=== PATIENT | female | born 1975 | race Caucasian/White ===

== ENCOUNTER 2017-07-01 15:19 | Emergency (ER) | payer OTHER, MEDICAID, SELFPAY ==
[2017-07-01 15:46] VITALS: BP 136/115; PULSE 74; RESP 18; TEMP 36.9; O2SAT 97; BMI 33.5
[2017-07-01 16:48] VITALS: BP 168/115
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
[2017-07-01 17:26] LABS: Microscopic, Urine URINE MICROSCOPIC (MICROSCOPIC)
[2017-07-01 17:30] LABS: Appearance,Urine CLEAR (Clear); Bilirubin,Urine Negative (Negative); Blood, Urine Negative (Negative); Color,Urine YELLOW (Yellow); Glucose,Urine (UA) Negative (Negative); Ketones,Urine Negative (Negative); Leukocyte Esterase,Urine Negative (Negative); Nitrate,Urine Negative (Negative); Protein,Urine Negative (Negative); Specific Gravity, Urine <= 1.005 (1.005-1.030); Urobilinogen,Urine 0.2 EU/dl (0.2)
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
--- NOTE | 2017-07-01 17:33 | PC.NURSE ---
Randolph Wolff RN to CT to put in IV for iv contradst.
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
[2017-07-01 17:47] LABS: Bacteria,Urine Trace /lpf; WBC,Urine Occasional #/hpf (0-3)
[2017-07-01 17:54] LABS: Basophils % 0.4 % (0.1-2.0); Eosinophils # 0.2 K/mm3 (0.0-0.4); Eosinophils % 3.2 % (0.1-12.0); Hematocrit 44.1 % (37.0-47.0); Hemoglobin 14.2 g/dL (12.2-16.2); Lymphocytes # 1.6 K/mm3 (0.7-4.5); Lymphocytes % 30.3 K/mm3 (10-50); Mean Corpuscular HGB Conc 32.2 g/dL (31.8-35.4); Mean Corpuscular Hemoglobin 29.5 pg (27.0-31.2); Mean Corpuscular Volume 91.7 fl (81-99); Mean Platelet Volume 8.1 fl (7.4-10.4); Monocytes # 0.2 K/mm3 (0.1-1.0); Monocytes % 3.3 % (1.7-9.3); Neutrophils # 3.2 K/mm3 (1.8-7.8); Neutrophils % 62.7 % (37.0-80.0); Platelet Count 200 K/mm3 (142-424); Red Blood Count 4.81 M/mm3 (4.20-5.40); Red Cell Distribution Width 13.9 % (11.5-17.5); White Blood Count 5.2 K/mm3 (4.8-10.8)
[2017-07-01 18:12] LABS: Alanine Aminotransferase 29 U/L (12-78); Albumin Level 3.6 gm/dL (3.4-5.0); Alkaline Phosphatase 59 U/L (46-116); Anion Gap 9.7 mEq/L (5-15); Aspartate Amino Transferase 12 U/L (15-37); Bilirubin,Total 0.3 mg/dL (0.2-1.0); Blood Urea Nitrogen 10 mg/dL (7-18); Calcium 8.7 mg/dL (8.5-10.1); Carbon Dioxide 28 mmol/L (21.0-32.0); Chloride 107 mmol/L (98-107); Creatinine Clearance Estimated 139 mL/min (0-300); Creatinine,Serum 0.73 mg/dL (0.55-1.02); Estimated Glomerular Filt Rate 88 ml/min (>60); GFR (African American) 107 ML/MIN (>60); Globulin 3.7 gm/dl (1.3-3.2); Glucose 91 mg/dL (74-106); Potassium 3.7 mmoL/L (3.5-5.1); Sodium 141 mmol/L (136-145); Total Protein,Serum 7.3 gm/dL (6.4-8.2)
[2017-07-01 20:06] VITALS: BP 152/80; PULSE 79; RESP 20; TEMP 36.6; O2SAT 99
== END 2017-07-01 20:07 | disposition home or self-care (01) ==
PROVIDERS: Emergency Provider Family Medicine; Family Provider Physician Assistant; PCP Nurse Practitioner Family
DX: S00.33XA Contusion of nose, initial encounter (principal); S10.93XA Contusion of unspecified part of neck, initial encounter; S30.1XXA Contusion of abdominal wall, initial encounter; S20.212A Contusion of left front wall of thorax, initial encounter; S20.211A Contusion of right front wall of thorax, initial encounter; V49.9XXA Car occupant (driver) (passenger) injured in unspecified traffic accident, initial encounter; Y92.488 Other paved roadways as the place of occurrence of the external cause; F17.210 Nicotine dependence, cigarettes, uncomplicated; F41.9 Anxiety disorder, unspecified; Z88.6 Allergy status to analgesic agent; Z88.1 Allergy status to other antibiotic agents
CPT/HCPCS: 70160; 71046; 71101; 72125; 73562; 74177; 80053; 81001; 85025; 96374; 96375; 99283; Q9967

== ENCOUNTER 2017-07-08 15:01 | Emergency (ER) | payer MEDICAID, SELFPAY ==
[2017-07-08 15:03] VITALS: BP 116/72; PULSE 86; RESP 77; TEMP 36.9; O2SAT 99; BMI 32.9
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
[2017-07-08 16:28] VITALS: BP 90/40; PULSE 75; RESP 18; TEMP 36.7; O2SAT 99
== END 2017-07-08 16:28 | disposition home or self-care (01) ==
PROVIDERS: Emergency Provider Emergency Medicine; Family Provider Physician Assistant; PCP Emergency Medicine
DX: S20.211A Contusion of right front wall of thorax, initial encounter (principal); T07.XXXA Unspecified multiple injuries, initial encounter; F41.9 Anxiety disorder, unspecified; Z88.6 Allergy status to analgesic agent; Z88.1 Allergy status to other antibiotic agents
CPT/HCPCS: 99281

== ENCOUNTER 2022-11-04 13:46 | Emergency (ER) | payer MEDICAID, SELFPAY ==
[2022-11-04 13:47] VITALS: BP 118/79; PULSE 73; RESP 18; TEMP 36.7; O2SAT 94; BMI 27.6
--- NOTE | 2022-11-04 14:07 | EXP.UTC ---
Discharge Plan Disposition Patient Disposition: Home, Self-Care Condition: Good Prescriptions Prescriptions: New sulfamethoxazole-trimethoprim [Bactrim DS] 800-160 mg Tablet 1 tab PO BID Qty: 20 0RF cephalexin 500 mg capsule 500 mg PO QID Qty: 40 0RF mupirocin 2 % ointment 1 applic topical TID 7 Days Qty: 15 0RF No Action hydroxyzine HCl 25 mg tablet 25 mg PO BID PRN (Reason: Anxiety) paroxetine HCl [Paxil] 40 mg tablet 40 mg PO DAILY hydrocodone-acetaminophen [[place]] 10-325 mg tablet 1 tab PO Q4-6H PRN (Reason: pain) gabapentin 300 mg tablet extended release 24 hr 300 mg PO TID fluticasone propionate [Flonase Allergy Relief] 50 mcg/actuation spray,suspension 1 spray INTRANASAL DAILY montelukast [Singulair] 10 mg tablet 10 mg PO QHS Referrals Follow up/Referrals: Owen Cristina MD [Primary Care Provider] - See instructions Activity Restrictions/Add. Instructions Additional Instructions/Restrictions: Keep the affected area clean and dry. Follow up with your regular doctor. Take the antibiotics as directed and apply the topical antibiotics as directed. Apply warm wet compresses to the affected area three or four times per day. GO TO THE ER FOR ANY WORSENING SYMPTOMS Clinical Impressions Clinical Impression: Cellulitis of right foot Instructions Patient Instructions: Cellulitis Discharge ED Provider: Joshua Cordoba [facility] General Stated complaint: Possible insect bite RT foot Mode of Arrival: Ambulatory Source of Information: Patient Limitations: No Limitations Time Seen by Provider: 11/04/22 14:07 Description of Symptoms (Recalled from Triage Doc. by RN): Patient reports a bug bite on the top of her right foot for 1 week. HEENT Symptoms (Recalled from RN notes): No Resp Symptoms (Recalled from RN notes): No Skin Symptoms (Recalled from RN notes): Yes MS Symptoms (Recalled from RN notes): No Functional Status (Recalled from RN notes): wnl History of Present Illness Provider Complaint: She states that for the past 3 days she has had swelling and warmth of her right foot. There is an area of redness on top of the foot. She denies any known injury. She is not a diabetic. Related Data Home Medications Medication Instructions Recorded Confirmed fluticasone propionate 50 1 spray intranasal DAILY Breathing 07/01/17 07/01/17 mcg/actuation nasal problems spray,suspension (Flonase Allergy Relief) gabapentin 300 mg tablet,extended 300 mg PO TID Pain 07/01/17 07/01/17 release 24 hr hydrocodone 10 mg-acetaminophen 1 tab PO Q4-6H PRN pain 07/01/17 07/01/17 325 mg tablet ([place]) hydroxyzine HCl 25 mg tablet 25 mg PO BID PRN Anxiety 07/01/17 07/01/17 montelukast 10 mg tablet 10 mg PO QHS allergies 07/01/17 07/01/17 (Singulair) paroxetine HCl 40 mg tablet (Paxil) 40 mg PO DAILY Depression 07/01/17 07/01/17 Previous Rx's Medication Instructions Recorded cephalexin 500 mg capsule 500 mg PO QID #40 caps 11/04/22 mupirocin 2 % topical ointment 1 applic topical TID 7 days #15 11/04/22 grams sulfamethoxazole 800 1 tab PO BID #20 tabs 11/04/22 mg-trimethoprim 160 mg tablet (Bactrim DS) Allergies Allergy/AdvReac Type Severity Reaction Status Date / Time ketorolac [From TORADOL] Allergy Intermediate I-RASH Verified 07/01/17 16:25 NSAIDS (Non-Steroidal Allergy Intermediate I-HIVES Verified 07/01/17 16:25 Anti-Inflamma [NSAIDS (NON-STEROIDAL ANTI-INFLAMMA] tramadol [TRAMADOL] Allergy Intermediate I-ITCHING Verified 07/01/17 16:25 morphine Allergy Mild Hives Verified 07/01/17 16:25 amoxicillin [AMOXICILLIN] Allergy Unknown Verified 07/01/17 16:25 From RED DYE (FOOD/DRUG) Allergy Intermediate I-ITCHING Uncoded 07/01/17 13:53 Worker's Comp Is this a Worker's Comp case?: No [facility] Disclaimer: The information contained in this section may have been updated after the patient was seen, as this inform
[2022-11-04 14:48] VITALS: BP 118/79; PULSE 73; RESP 18; TEMP 36.7; O2SAT 94
== END 2022-11-04 14:49 | disposition home or self-care (01) ==
PROVIDERS: Emergency Provider Nurse Practitioner Family; PCP Emergency Medicine
DX: L03.115 Cellulitis of right lower limb (principal); F17.210 Nicotine dependence, cigarettes, uncomplicated
CPT/HCPCS: 96372; 99204; 99212; G0463; J0696

== ENCOUNTER 2023-10-26 21:40 | Emergency (ER) | payer MEDICAID, SELFPAY ==
[2023-10-26 21:51] VITALS: BP 126/66; PULSE 83; RESP 16; TEMP 37.4; O2SAT 100; BMI 28.8
[2023-10-26] MEDS: diphenhydrAMINE 50MG/ML VIAL 25 MG IV (22:17)
[2023-10-26] MEDS: KETOROLAC 30MG/ML VIAL 15 MG IV (22:17)
[2023-10-26] MEDS: ACETAMINOPHEN 1,000MG/100ML VIAL 1000 MG IV (22:17)
[2023-10-26] MEDS: LACTATED RINGERS 1000ML 1,000 ML 999 ML IV (22:17)
[2023-10-26 22:22] LABS: Barbiturates Screen,Urine Negative ng/ml (<200)
[2023-10-26 22:23] LABS: Benzodiazepines Screen,Urine Negative ng/ml (<200); Cannabinoid Screen,Urine Positive ng/ml (<50)
[2023-10-26 22:24] LABS: Cocaine Screen,Urine Positive ng/ml (<300)
[2023-10-26 22:25] LABS: Methadone Screen,Urine Negative ng/ml (<300); Opiate Screen,Urine Negative ng/ml (<300)
[2023-10-26 22:26] LABS: Phencyclidine Screen,Urine Negative ng/ml (<25)
[2023-10-26 22:29] LABS: Basophils % 0.2 % (0.1-2.0); Eosinophils # 0.1 K/mm3 (0.0-0.4); Eosinophils % 0.9 % (0.1-12.0); Hematocrit 37.1 % (37.0-47.0); Hemoglobin 12.4 g/dL (12.2-16.2); Lymphocytes # 1.1 K/mm3 (0.7-4.5); Lymphocytes % 12.7 % (10-50); Mean Corpuscular HGB Conc 33.4 g/dL (31.8-35.4); Mean Corpuscular Volume 83.8 fl (81-99); Mean Platelet Volume 8.3 fl (7.4-10.4); Monocytes # 0.3 K/mm3 (0.1-1.0); Monocytes % 3.7 % (1.7-9.3); Neutrophils # 6.9 K/mm3 (1.8-7.8); Neutrophils % 82.6 % (37.0-80.0); Platelet Count 188 K/mm3 (142-424); Red Blood Count 4.43 M/mm3 (4.20-5.40); Red Cell Distribution Width 14.6 % (11.5-17.5); White Blood Count 8.3 K/mm3 (4.8-10.8)
[2023-10-26 22:37] LABS: Chloride 105 mmol/L (98-107); Sodium 138 mmol/L (136-145)
[2023-10-26 22:40] LABS: Alanine Aminotransferase 23 U/L (12-78); Albumin/Globulin Ratio 1.1 (1.1-1.8); Alkaline Phosphatase 71 U/L (38-126); Aspartate Amino Transferase 25 U/L (14-36); Bilirubin,Total 0.6 mg/dl (0.2-1.3); Blood Urea Nitrogen 11 mg/dl (7-17); Calcium 9.4 mg/dl (8.4-10.2); Carbon Dioxide 24 mmol/L (22.0-30.0); Creatinine Clearance Estimated 116 mL/min (50-200); Estimated Glomerular Filt Rate 90 ml/min (>60); GFR (African American) 109 ML/MIN (>60); Globulin 3.7 g/dL (1.3-3.2); Glucose 139 mg/dl (74-100); Total Protein,Serum 7.7 g/dl (6.3-8.2)
[2023-10-26 22:41] LABS: Lactic Acid 2.4 mmol/L (0.7-2.1)
--- NOTE | 2023-10-26 23:18 | HMH.EDGENADL ---
Discharge Plan Disposition Patient Disposition: Home, Self-Care Condition: Good Prescriptions Prescriptions: New levofloxacin 750 mg tablet 750 mg PO DAILY 7 Days Qty: 7 0RF bacitracin [Bacitraycin Plus] 500 unit/gram ointment 1 applic topical BID Qty: 28 0RF No Action hydroxyzine HCl 25 mg tablet 25 mg PO BID PRN (Reason: Anxiety) paroxetine HCl [Paxil] 40 mg tablet 40 mg PO DAILY hydrocodone-acetaminophen [[place]] 10-325 mg tablet 1 tab PO Q4-6H PRN (Reason: pain) gabapentin 300 mg tablet extended release 24 hr 300 mg PO TID fluticasone propionate [Flonase Allergy Relief] 50 mcg/actuation spray,suspension 1 spray INTRANASAL DAILY montelukast [Singulair] 10 mg tablet 10 mg PO QHS sulfamethoxazole-trimethoprim [Bactrim DS] 800-160 mg Tablet 1 tab PO BID Qty: 20 0RF cephalexin 500 mg capsule 500 mg PO QID Qty: 40 0RF mupirocin 2 % ointment 1 applic topical TID 7 Days Qty: 15 0RF Referrals Follow up/Referrals: Lilia Cheema APRN [Primary Care Provider] - See instructions Activity Restrictions/Add. Instructions Additional Instructions/Restrictions: You were evaluated in the ER. You are appropriate for discharge at this time. Keep the wound clean and dry. Remove the dressing twice daily and wash the wound with soap and water. Apply the prescribed bacitracin to the wound after you have slightly moved the yellow loop as instructed. Then cover and wrap the wound. Cut the yellow loop and remove it yourself after 5 days. This should be removed on Tuesday the . You can also come back to the ER to have the loop removed if needed. Continue using bacitracin ointment over the wound until it is fully healed. Take the antibiotics as prescribed, do not skip doses, do not stop taking them early. Make an appointment with your primary care physician for reevaluation in 2 to 3 days, return to the ER with new, worsening, or otherwise concerning symptoms. Clinical Impressions Clinical Impression: Abscess of right forearm, Cellulitis of forearm, right, Acute hypokalemia Instructions Patient Instructions: DI for Skin Abscess Discharge ED Provider: Rudy Guzman General Adult HPI <Rudy Guzman MD - Last Filed: 10/26/23 23:32> General Chief complaint: Skin/Abscess/Foreign Body Stated complaint: inf swollem knot LT forearm, fever Time Seen by Provider: 10/26/23 21:46 Mode of Arrival: Family Vehicle Source of Information: Patient Limitations: No Limitations Description of Symptoms (Recalled from ER Triage Doc. by RN): 48 yo female presents with CC of right arm abscess. Patient explains that she originally had what she thought was a bug bite, that she kept scratching and also accidentally hit with her car door on tuesday, and now has exponentially grown in size. Patient is a former drug addict per her statment, last known use was 4 months ago per her statement. Patient is alert, slightly febrile at presentation. History of Present Illness HPI narrative: Please note that above description of symptoms, in this electronic medical record under categorization of recalled from ER triage doctor by RN are reflective of an initial nursing assessment, however, is not reflective of my full history and physical exam that was personally taken and clarified. Consequentially, this preceding description of symptoms, which may include the patient's categorized chief complaint in the EMR, do not reflect my personal clinical impression, and the ultimate description of history of present illness and patient stated complaints should be deferred to this section of the note. Unless stated otherwise or congruent with this section of the note, additional signs, symptoms, or incongruence should be interpreted as inaccurate with my clinical impression. Related Data Home Medications Medication Instructions Recorded Confirmed fluticasone propionate 50 1 spray intranasal DAILY Breathing 07/01/17 07/01/17 mcg/actuation nasal problems spray,suspension (Flonase Allergy Relief) gabapentin 300 mg tablet,extended 300 mg PO TID Pain 07/01/17 07/01/17 release 24 hr hydrocodone 10 mg-acetaminophen 1 tab PO Q4-6H PRN pain 07/01/17 07/01/17 325 mg tablet ([place]) hydroxyzine HCl 25 mg tablet 25 mg PO BID PRN Anxiety 07/01/17 07/01/17 montelukast 10 mg tablet 10 mg PO QHS allergies 07/01/17 07/01/17 (Singulair) paroxetine HCl 40 mg tablet (Paxil) 40 mg PO DAILY Depression 07/01/17 07/01/17 Previous Rx's Medication Instructions Recorded cephalexin 500 mg capsule 500 mg PO QID #40 caps 11/04/22 mupirocin 2 % topical ointment 1 applic topical TID 7 days #15 11/04/22 grams sulfamethoxazole 800 1 tab PO BID #20 tabs 11/04/22 mg-trimethoprim 160 mg tablet (Bactrim DS) bacitracin 500 unit/gram topical 1 applic topical BID #28 grams 10/27/23 ointment (Bacitraycin Plus) levofloxacin 750 mg tablet 750 mg PO DAILY 7 days #7 tabs 10/27/23 Allergies Allergy/AdvReac Type Severity Reaction Status Date / Time ketorolac [From TORADOL] Allergy Intermediate I-RASH Verified 07/01/17 16:25 NSAIDS (Non-Steroidal Allergy Intermediate I-HIVES Verified 07/01/17 16:25 Anti-Inflamma [NSAIDS (NON-STEROIDAL ANTI-INFLAMMA] tramadol [TRAMADOL] Allergy Intermediate I-ITCHING Verified 07/01/17 16:25 morphine Allergy Mild Hives Verified 07/01/17 16:25 amoxicillin [AMOXICILLIN] Allergy Unknown Verified 07/01/17 16:25 From RED DYE (FOOD/DRUG) Allergy Intermediate I-ITCHING Uncoded 07/01/17 13:53 PFSH <Rudy Guzman MD - Last Filed: 10/26/23 23:32> PFS Disclaimer: The information contained in this section may have been updated after the patient was seen, as this information can be updated by other users. Social History (Updated 11/04/22 @ 20:05 by Joshua Cordoba APRN) Smoking Status: Unknown if ever smoked alcohol intake: never substance use type: denies use current occupational status: employed Travel in the last 8 weeks: None <Rudy Guzman MD - Last Filed: 10/26/23 23:32> ROS Obtained: Yes All systems reviewed & no additional complaints except as documented Physical Exam <Rudy Guzman MD - Last Filed: 10/26/23 23:32> General General appearance: alert Head Head exam: atraumatic and normocephalic Eye Eye exam: Present normal appearance, PERRL and EOMI Neck Neck exam: Present normal inspection, full ROM and trachea midline Respiratory Respiratory exam: Absent respiratory distress, wheezes, stridor, accessory muscle use or prolonged expiratory phase Cardiovascular Cardiovascular exam: Present other (Pulses equal symmetric in upper and lower extremities) Abdominal Exam Abdominal exam: Present soft; Absent distention, tenderness or pulsatile mass Extremities Exam Extremities exam: Present edema and other (Swelling, tenderness, obvious fluctuance and abscess of mid right forearm. Compartments are soft, no pain with passive range of motion or active range of motion of wrist, but maximal pain with direct pressure) Neurological Exam Neurological exam: Present alert, oriented X3 and CN II-XII intact; Absent motor sensory deficit Skin Skin exam: Present warm and dry; Absent diaphoresis or erythema Medical Decision Making <Rudy Guzman MD - Last Filed: 10/26/23 23:32> Medical Records Medical records reviewed: Yes I reviewed the patient's medical records. Robert Inquiry Pt receiving controlled substance: No Robert was queried for this patient: No Vital Signs: 10/26/23 21:51 Temperature 99.3 F Temperature Source Oral Pulse Rate [Right Brachial] 83 Respiratory Rate 16 Blood Pressure [Right Arm] 126/66 Blood Pressure Mean [Right Arm] 86 Blood Pressure Source [Right Arm] Automatic Cuff Blood Pressure Position [Right Arm] Sitting 02 Sat by Pulse Oximetry 100 Oxygen Delivery Method Room Air Lab Data Lab Results 10/26/23 21:59: Urine Opiates Screen Negative, Urine Methadone Screen Negative, Ur Barbituates Screen Negative, Ur Phencyclidine Scrn Negative, Ur Amphetamines Screen Quality Improvement Consultant, U Benzodiazepines Scrn Negative, Urine Cocaine Screen Positive H, U Marijuana (THC) Screen Positive H 10/26/23 22:15: WBC 8.3, RBC 4.43, Hgb 12.4, Hct 37.1, MCV 83.8, MCH 28.0, MCHC 33.4, RDW 14.6, Plt Count 188, MPV 8.3, Neut % (Auto) 82.6 H, Lymph % (Auto) 12.7, [place] % (Auto) 3.7, Eos % (Auto) 0.9, Baso % (Auto) 0.2, Neut # (Auto) 6.9, Lymph # (Auto) 1.1, [place] # (Auto) 0.3, Eos # (Auto) 0.1, Baso # (Auto) 0.0, Sodium 138, Potassium 3.0 L, Chloride 105, Carbon Dioxide 24, Anion Gap 12.0, BUN 11, Creatinine 0.70, Estimated Creat Clear 116, Estimated GFR 90, Est GFR ( Amer) 109, Glucose 139 H, Lactate 2.4 H, Calcium 9.4, Total Bilirubin 0.6, AST 25, ALT 23, Alkaline Phosphatase 71, Total Creatine Kinase 21 L, C-Reactive Protein 43.0 H, Total Protein 7.7, Albumin 4.0, Globulin 3.7 H, Albumin/Globulin Ratio 1.1 10/26/23 22:15 10/26/23 22:15 Orders (Tests/Meds): ED MEDICATIONS Generic Name Dose Route Start Last Admin Trade Name Freq PRN Reason Stop Dose Admin Sodium Chloride 10 ml 10/27/23 00:44 10/27/23 00:45 Sodium Chloride 0.9% 10ml Syr (Rad Only) IV 11/26/23 00:43 10 ml NEEDED PRN Administration Maintain IV Site Discontinued Medications Generic Name Dose Route Start Last Admin Trade Name Freq PRN Reason Stop Dose Admin Acetaminophen 1,000 mg 10/26/23 21:56 10/26/23 22:17 Acetaminophen 1,000mg/100ml Vial IV 10/26/23 21:57 1,000 mg ONCE ONE Administration Bacitracin 1 each 10/27/23 03:06 10/27/23 03:13 Bacitracin Oint 0.9gm Udp TP 10/27/23 03:07 1 each ONCE ONE Administration Cocaine HCl 1 ml 10/27/23 02:04 10/27/23 02:23 Cocaine 4% Topical Soln 4ml Bottle TP 10/27/23 02:05 1 ml ONCE ONE Administration Diphenhydramine HCl 25 mg 10/26/23 21:56 10/26/23 22:17 Diphenhydramine 50mg/Ml Vial IV 10/26/23 21:57 25 mg ONCE ONE Administration Epinephrine HCl 1 mg 10/27/23 02:04 10/27/23 02:22 Epinephrine 1 Mg/Ml Ampul TP 10/27/23 02:05 1 mg ONCE ONE Administration Hydromorphone HCl 1 mg 10/26/23 23:24 10/26/23 23:37 Hydromorphone 2mg/Ml Syringe IV 10/26/23 23:25 1 mg ONCE ONE Administration Hydromorphone HCl 1 mg 10/27/23 02:04 10/27/23 02:22 Hydromorphone 2mg/Ml Syringe IV 10/27/23 02:05 1 mg ONCE ONE Administration Lactated Ringer's 1,000 mls @ 999 mls/hr 10/26/23 21:56 10/26/23 22:17 Lactated Ringer's 1000 Ml Bag IV 10/26/23 22:56 999 mls/hr .Q1H1M ONE Administration Dalbavancin 1,500 mg/ Dextrose 250 mls @ 500 mls/hr 10/26/23 23:04 10/26/23 23:30 IV 10/26/23 23:05 500 mls/hr ONCE ONE Administration Iopamidol 75 ml 10/27/23 00:44 10/27/23 00:45 Iopamidol-370 (76%);100ml Bottle IV 10/27/23 00:45 75 ml ONCE ONE Administration Ketorolac Tromethamine 15 mg 10/26/23 21:56 10/26/23 22:17 Ketorolac 30mg/Ml Vial IV 10/26/23 21:57 15 mg ONCE ONE Administration Levofloxacin 750 mg 10/27/23 03:03 10/27/23 03:13 Levofloxacin 750 Mg Tablet PO 10/27/23 03:04 750 mg ONCE ONE Administration Lidocaine HCl 1 ml 10/27/23 02:04 10/27/23 02:22 Lidocaine 4% Topical Soln 1ml TP 10/27/23 02:05 1 ml ONCE ONE Administration Lidocaine HCl 5 ml 10/27/23 02:04 10/27/23 02:22 Lidocaine 1% 5ml Pf Vial IJ 10/27/23 02:05 5 ml ONCE ONE Administration Potassium Chloride 60 meq 10/26/23 22:54 10/26/23 23:31 Potassium Chloride 20meq Tab PO 10/26/23 22:55 60 meq ONCE ONE Administration ORDERS Category Date Time Status CT forearm RT w con Stat Cat Scan 10/26/23 23:22 Completed POCUS Point of Care (ER Only) Stat Exams 10/26/23 23:04 Taken POCUS Point of Care (ER Only) Stat Exams 10/27/23 01:56 Ordered CBC w/Auto Diff [Complete Blood Count Auto Diff] Stat Lab 10/26/23 22:15 Completed CK [Creatine Kinase] Stat Lab 10/26/23 22:15 Completed CMP [Comprehensive Metabolic Panel] Stat Lab 10/26/23 22:15 Completed CRP [C-Reactive Protein] Stat Lab 10/26/23 22:15 Completed Lactic Acid Follow Up (RFLX 1) Stat Lab 10/27/23 02:23 Ordered Lactic Acid Stat Lab 10/26/23 22:15 Completed UDS [Drug Screen,Urine] Stat Lab 10/26/23 21:59 Completed Blood Culture Stat Micro 10/26/23 21:56 Received Medical Decision Narrative: 48-year-old female history of polysubstance abuse previous IV drug abuse currently on Suboxone maintenance therapy still using other substances presenting with right upper extremity swelling. Patient has intermittently changing story about how her right upper extremity swelling came to be. States that she had a boil that was there for a few days. Tried to pop it, unable to do so, got larger, red, developed ahead. Today, she was walking out the door, her dog somehow closed the door and closed her right upper extremity into a door while it was swinging close. Thought she broke her arm. Came in for further evaluation. Has taken Tylenol for the pain. History was obtained via conversation with patient and daughter. On arrival, patient hemodynamically stable, alert, oriented x4, appropriate, GCS 15, moving all extremities spontaneously, pupils equal and reactive to light. Full physical exam performed and significant for patient appears to be in mild distress secondary to pain. Pressured speech, difficult to redirect. Right upper extremity is swollen, has obvious fluctuance to the mid forearm. Area of fluctuance probably 6 cm circularly with 1 to 2 cm of fluctuance in the middle. Cellulitis with abscess is most likely on differential, but also myositis, early compartment syndrome, others cannot be ruled out immediately. Patient is neurologically intact distally, no pain with range of motion of wrist or digits. Compartments soft. Pulses are equal and symmetric in upper extremities and patient does have good capillary refill in her right upper extremity.. Differential includes abscess, deep space infection, myositis, necrotizing infection, among others. Independent rotation of workup demonstrates normal white count with neutrophilic predominance, sodium normal. Potassium low at 3.0, this was repleted with 60 p.o. Patient's lactate 2.4. CK pending at time of handoff to oncoming physician. Given large surface area and normal kidney function, Dalvance was ordered given low concern for need for admission or surgical intervention initially. [id number] ultrasound was performed and was much more concerning for deep space infection versus infectious myositis. Large, complex abscess with surrounding cellulitis burrowing deep into the muscular tissue of the arm. CT of the right upper extremity was ordered. Patient was given 1 mg Dilaudid IV. Prior to final disposition, care handed off to oncoming physician. Industrial Property Appraiser disclaimer Much of this encounter note is an electronic resident physician spoken language to printed text. Electronic resident physician of the spoken language may permit errors. Although I have reviewed the note, some errors may still exist. <Kane Montoya MD - Last Filed: 10/27/23 03:24> Vital Signs: 10/26/23 21:51 Temperature 99.3 F Temperature Source Oral Pulse Rate [Right Brachial] 83 Respiratory Rate 16 Blood Pressure [Right Arm] 126/66 Blood Pressure Mean [Right Arm] 86 Blood Pressure Source [Right Arm] Automatic Cuff Blood Pressure Position [Right Arm] Sitting 02 Sat by Pulse Oximetry 100 Oxygen Delivery Method Room Air Lab Data Lab Results 10/26/23 21:59: Urine Opiates Screen Negative, Urine Methadone Screen Negative, Ur Barbituates Screen Negative, Ur Phencyclidine Scrn Negative, Ur Amphetamines Screen Quality Improvement Consultant, U Benzodiazepines Scrn Negative, Urine Cocaine Screen Positive H, U Marijuana (THC) Screen Positive H 10/26/23 22:15: WBC 8.3, RBC 4.43, Hgb 12.4, Hct 37.1, MCV 83.8, MCH 28.0, MCHC 33.4, RDW 14.6, Plt Count 188, MPV 8.3, Neut % (Auto) 82.6 H, Lymph % (Auto) 12.7, [place] % (Auto) 3.7, Eos % (Auto) 0.9, Baso % (Auto) 0.2, Neut # (Auto) 6.9, Lymph # (Auto) 1.1, [place] # (Auto) 0.3, Eos # (Auto) 0.1, Baso # (Auto) 0.0, Sodium 138, Potassium 3.0 L, Chloride 105, Carbon Dioxide 24, Anion Gap 12.0, BUN 11, Creatinine 0.70, Estimated Creat Clear 116, Estimated GFR 90, Est GFR ( Amer) 109, Glucose 139 H, Lactate 2.4 H, Calcium 9.4, Total Bilirubin 0.6, AST 25, ALT 23, Alkaline Phosphatase 71, Total Creatine Kinase 21 L, C-Reactive Protein 43.0 H, Total Protein 7.7, Albumin 4.0, Globulin 3.7 H, Albumin/Globulin Ratio 1.1 Orders (Tests/Meds): ED MEDICATIONS Generic Name Dose Route Start Last Admin Trade Name [place] PRN Reason Stop Dose Admin Sodium Chloride 10 ml 10/27/23 00:44 10/27/23 00:45 Sodium Chloride 0.9% 10ml Syr (Rad Only) IV 11/26/23 00:43 10 ml NEEDED PRN Administration Maintain IV Site Discontinued Medications Generic Name Dose Route Start Last Admin Trade Name [place] PRN Reason Stop Dose Admin Acetaminophen 1,000 mg 10/26/23 21:56 10/26/23 22:17 Acetaminophen 1,000mg/100ml Vial IV 10/26/23 21:57 1,000 mg ONCE ONE Administration Bacitracin 1 each 10/27/23 03:06 10/27/23 03:13 Bacitracin Oint 0.9gm Udp TP 10/27/23 03:07 1 each ONCE ONE Administration Cocaine HCl 1 ml 10/27/23 02:04 10/27/23 02:23 Cocaine 4% Topical Soln 4ml Bottle TP 10/27/23 02:05 1 ml ONCE ONE Administration Diphenhydramine HCl 25 mg 10/26/23 21:56 10/26/23 22:17 Diphenhydramine 50mg/Ml Vial IV 10/26/23 21:57 25 mg ONCE ONE Administration Epinephrine HCl 1 mg 10/27/23 02:04 10/27/23 02:22 Epinephrine 1 Mg/Ml Ampul TP 10/27/23 02:05 1 mg ONCE ONE Administration Hydromorphone HCl 1 mg 10/26/23 23:24 10/26/23 23:37 Hydromorphone 2mg/Ml Syringe IV 10/26/23 23:25 1 mg ONCE ONE Administration Hydromorphone HCl 1 mg 10/27/23 02:04 10/27/23 02:22 Hydromorphone 2mg/Ml Syringe IV 10/27/23 02:05 1 mg ONCE ONE Administration Lactated Ringer's 1,000 mls @ 999 mls/hr 10/26/23 21:56 10/26/23 22:17 Lactated Ringer's 1000 Ml Bag IV 10/26/23 22:56 999 mls/hr .Q1H1M ONE Administration Dalbavancin 1,500 mg/ Dextrose 250 mls @ 500 mls/hr 10/26/23 23:04 10/26/23 23:30 IV 10/26/23 23:05 500 mls/hr ONCE ONE Administration Iopamidol 75 ml 10/27/23 00:44 10/27/23 00:45 Iopamidol-370 (76%);100ml Bottle IV 10/27/23 00:45 75 ml ONCE ONE Administration Ketorolac Tromethamine 15 mg 10/26/23 21:56 10/26/23 22:17 Ketorolac 30mg/Ml Vial IV 10/26/23 21:57 15 mg ONCE ONE Administration Levofloxacin 750 mg 10/27/23 03:03 10/27/23 03:13 Levofloxacin 750 Mg Tablet PO 10/27/23 03:04 750 mg ONCE ONE Administration Lidocaine HCl 1 ml 10/27/23 02:04 10/27/23 02:22 Lidocaine 4% Topical Soln 1ml TP 10/27/23 02:05 1 ml ONCE ONE Administration Lidocaine HCl 5 ml 10/27/23 02:04 10/27/23 02:22 Lidocaine 1% 5ml Pf Vial IJ 10/27/23 02:05 5 ml ONCE ONE Administration Potassium Chloride 60 meq 10/26/23 22:54 10/26/23 23:31 Potassium Chloride 20meq Tab PO 10/26/23 22:55 60 meq ONCE ONE Administration ORDERS Category Date Time Status CT forearm RT w con Stat Cat Scan 10/26/23 23:22 Completed POCUS Point of Care (ER Only) Stat Exams 10/26/23 23:04 Taken POCUS Point of Care (ER Only) Stat Exams 10/27/23 01:56 Ordered CBC w/Auto Diff [Complete Blood Count Auto Diff] Stat Lab 10/26/23 22:15 Completed CK [Creatine Kinase] Stat Lab 10/26/23 22:15 Completed CMP [Comprehensive Metabolic Panel] Stat Lab 10/26/23 22:15 Completed CRP [C-Reactive Protein] Stat Lab 10/26/23 22:15 Completed Lactic Acid Follow Up (RFLX 1) Stat Lab 10/27/23 02:23 Ordered Lactic Acid Stat Lab 10/26/23 22:15 Completed UDS [Drug Screen,Urine] Stat Lab 10/26/23 21:59 Completed Blood Culture Stat Micro 10/26/23 21:56 Received Medical Decision Narrative: 48-year-old female history of polysubstance abuse previous IV drug abuse currently on Suboxone maintenance therapy still using other substances presenting with right upper extremity swelling. Patient has intermittently changing story about how her right upper extremity swelling came to be. States that she had a boil that was there for a few days. Tried to pop it, unable to do so, got larger, red, developed ahead. Today, she was walking out the door, her dog somehow closed the door and closed her right upper extremity into a door while it was swinging close. Thought she broke her arm. Came in for further evaluation. Has taken Tylenol for the pain. History was obtained via conversation with patient and daughter. On arrival, patient hemodynamically stable, alert, oriented x4, appropriate, GCS 15, moving all extremities spontaneously, pupils equal and reactive to light. Full physical exam performed and significant for patient appears to be in mild distress secondary to pain. Pressured speech, difficult to redirect. Right upper extremity is swollen, has obvious fluctuance to the mid forearm. Area of fluctuance probably 6 cm circularly with 1 to 2 cm of fluctuance in the middle. Cellulitis with abscess is most likely on differential, but also myositis, early compartment syndrome, others cannot be ruled out immediately. Patient is neurologically intact distally, no pain with range of motion of wrist or digits. Compartments soft. Pulses are equal and symmetric in upper extremities and patient does have good capillary refill in her right upper extremity.. Differential includes abscess, deep space infection, myositis, necrotizing infection, among others. Independent rotation of workup demonstrates normal white count with neutrophilic predominance, sodium normal. Potassium low at 3.0, this was repleted with 60 p.o. Patient's lactate 2.4. CK pending at time of handoff to oncoming physician. Given large surface area and normal kidney function, Dalvance was ordered given low concern for need for admission or surgical intervention initially. [id number] ultrasound was performed and was much more concerning for deep space infection versus infectious myositis. Large, complex abscess with surrounding cellulitis burrowing deep into the muscular tissue of the arm. CT of the right upper extremity was ordered. Patient was given 1 mg Dilaudid IV. Prior to final disposition, care handed off to oncoming physician. Industrial Property Appraiser disclaimer Much of this encounter note is an electronic resident physician spoken language to printed text. Electronic resident physician of the spoken language may permit errors. Although I have reviewed the note, some errors may still exist. Montoya: Upon my assumption of care patient is stable and her pain is improved since receiving Dilaudid. Previous physician was concerned for large complex abscess with possible muscular invasion. CT imaging of the right upper extremity was performed to further evaluate this. The CT imaging was personally interpreted and I do not appreciate obvious muscular invasion. The radiology read is notable for large multiloculated abscess of the forearm as previously described. They also commented on inflammatory changes of the basilic vein. I discussed the radiology read specifically with Dr. Alvarado with radiology from [facility] that he stated specifically there is no muscle belly invasion however the abscess does abut the muscle and remains in the subcutaneous space. I performed a limited DVT ultrasound of the right upper extremity specifically to examine the basilic vein and do not appreciate any findings consistent with thrombophlebitis on this exam. LEC was applied to the area where incision and drainage is necessary. Patient was consented for incision and drainage. See procedure note. Given concerns for IV drug use given patient's positive UDS and history, I believe she requires gram-negative coverage in addition to the Dalvance that she received. I prescribed Levaquin for this purpose. Patient has also been prescribed bacitracin for wound care. She was given explicit instructions on continued wound care, management of the [place], medication administration instructions, follow-up instructions, and strict return precautions for the ER. She indicated understanding and the patient was discharged in stable condition. Procedures <Rudy Guzman MD - Last Filed: 10/26/23 23:32> Limited Ultrasound Indication:: Limited soft tissue ultrasound Indication: Concern for cellulitis and abscess right upper extremity Identified structures: Location: Right forearm Findings: Lower complex abscess right upper extremity with surrounding cellulitis. No evidence of subcutaneous gas Impression: Complex abscess and cellulitis right upper extremity with extension into the muscle. Images were saved to permanent archive The study was technically adequate Soft Tissue CPT Codes: CPT Neck: 05241-65 CPT Upper extremity: 41946-54 CPT Axilla: 39700-40 CPT Chest wall: 80400-94 CPT Breast: 86256-81-LP/LT (complete), 78760-96-TS/LT (limited), CPT Upper Back: 67328-02 CPT Lower Back: 66761-57 CPT Abdominal Wall: 97821-47 CPT Pelvic Wall: 82493-65 CPT Lower Extremity: 63960-49 CPT Other Soft Tissue: 94696-27 This study was performed by ky, and I personally interpreted all images/videos. Based on my clinical judgement, these images were adequate and did not necessitate further imaging. <Kane Montoya MD - Last Filed: 10/27/23 03:24> Abscess I/D Site: upper extremity Side (if applicable): right Sedation/analgesia: none Local Anesthetic: lidocaine 1% and other anesthetic (Topical LEC) Amount of anesthesia used (mL): 2 Technique: incised with #11 blade (2 parallel linear incisions approximately 1.5 cm apart) Irrigation: Yes (50 mL sterile saline) Packing used?: none (Vessel loop through the 2 parallel incisions to maintain patency) Complications: other (No complications, neurovascularly intact after procedure with improvement of pain, patient tolerated procedure well, copious amounts of foul-smelling purulent material expressed from the abscess, it was also probed and deloculated) Miscellaneous Procedure Procedure Performed: Limited DVT ultrasound Indication: Limited compression ultrasonography of the right upper extremity was performed to evaluate for non-compressibility of the deep veins in the patient. The ultrasound was performed with the following indications, as noted in the note: Arm pain, CT findings concerning for possible superficial thrombophlebitis of basilic vein Identified structures: Right basilic Findings: Upper extremity: Good compressibility of basilic vein. No findings consistent with thrombophlebitis. Impression: Unremarkable limited right upper extremity DVT ultrasound Images were saved to permanent archive The study was technically adequate CPT: 18600-61-YL This study was performed by ky, and I personally interpreted all images/videos. Based on my clinical judgement, these images were adequate and did not necessitate further imaging. Critical Care <Rudy Guzman MD - Last Filed: 10/26/23 23:32> Critical Care Time Critical Care Time: No
--- NOTE | 2023-10-26 23:22 | CT_ITS ---
PROCEDURE INFORMATION: Exam: CT Right Upper Extremity With Contrast, Forearm Exam date and time: 10/27/2023 12:39 AM Age: 48 years old Clinical indication: Mass or lump; Arm, lower; Right; Additional info: Abscess R forearm TECHNIQUE: Imaging protocol: Computed tomography of the right upper extremity with contrast. Exam focused on the forearm. Radiation optimization: All CT scans at this facility use at least one of these dose optimization techniques: automated exposure control; mA and/or kV adjustment per patient size (includes targeted exams where dose is matched to clinical indication); or iterative reconstruction. Contrast material: ISOVUE; Contrast volume: 75 ml; Contrast route: IV; COMPARISON: No relevant prior studies available. FINDINGS: Bones/joints: Normal. No acute fracture or dislocation. Soft tissues: Additional areas of inflammation are seen within more distal arm. Vasculature: There is a 2.9 x 2.7 x 2.7 cm multiloculated rim enhancing collection immediately distal to the antecubital fossa (image 72 series 4). There is significant inflammatory change of the basilic vein (image 41 series 4). IMPRESSION: 1. 3 cm abscess within the volar aspect of the forearm. 2. Possible thrombophlebitis of the basilic vein.
[2023-10-26] MEDS: DALBAVANCIN HCL 1,500 MG in DEXTROSE 5 % IN WATER 250 ML 500 MG IV (23:30)
[2023-10-26] MEDS: POTASSIUM CHLORIDE 20MEQ TAB 60 MEQ PO (23:31)
[2023-10-26] MEDS: HYDROMORPHONE 2MG/ML SYRINGE 1 MG IV (23:37)
[2023-10-26 23:38] LABS: Creatine Kinase 21 U/L (30-135)
[2023-10-27] MEDS: SODIUM CHLORIDE 0.9% 10ML SYR (RAD ONLY) 10 ML IV (00:45)
[2023-10-27] MEDS: IOPAMIDOL-370 (76%);100ML BOTTLE 75 ML IV (00:45)
[2023-10-27 00:46] VITALS: BP 99/63; PULSE 55; O2SAT 98
--- NOTE | 2023-10-27 02:12 | PC.NURSE ---
Topical Lidocaine placed
[2023-10-27] MEDS: HYDROMORPHONE 2MG/ML SYRINGE 1 MG IV (02:22)
[2023-10-27] MEDS: EPINEPHrine 1 MG/ML AMPUL TP (02:22)
[2023-10-27] MEDS: LIDOCAINE 1% 5ML PF VIAL 5 ML IJ (02:22)
[2023-10-27] MEDS: LIDOCAINE 4% TOPICAL SOLN 1ML 1 ML TP (02:22)
[2023-10-27 02:23] LABS: Reflex Lactic Add Lactic Reflex
[2023-10-27] MEDS: COCAINE 4% TOPICAL SOLN 4ML BOTTLE 1 ML TP (02:23)
--- NOTE | 2023-10-27 02:45 | PC.NURSE ---
Dr. Montoya at bedside for I&D
[2023-10-27 02:58] VITALS: BP 123/82; PULSE 55; O2SAT 98
[2023-10-27] MEDS: levoFLOXacin 750 MG TABLET PO (03:13)
[2023-10-27] MEDS: BACITRACIN OINT 0.9GM UDP 1 EACH TP (03:13)
[2023-10-27 03:23] VITALS: BP 126/84; PULSE 59; O2SAT 100
[2023-10-27 03:26] VITALS: BP 126/84; PULSE 56; RESP 18; TEMP 36.7; O2SAT 100
--- NOTE | 2023-10-30 13:07 | PC.NURSE ---
Notified of blood culture being positive for moderate gram negative rods. Charge nurse notified.
--- NOTE | 2023-10-30 13:39 | PC.NURSE ---
Dr. Griffin reviewed both of pt's Preliminary blood cultures. Asked for staff to call pt to check on her. I called pt, she is feeling better and her arm is improving. Denies any fevers or appetite issues. I let her know we will call her back again with the final culture results and pt stated her understanding.
[2023-11-01 10:24] LABS: Amphetamine Positive (.); Amphetamine (GC/MS) 1878 ng/mL (Cutoff=500); Amphetamines Positive (.); Methamphetamine Positive (.); Methamphetamine (GC/MS) >3000 ng/mL (Cutoff=500)
--- NOTE | 2023-11-03 10:16 | PC.NURSE ---
BLOOD CULTURE DISCUSSED WITH DR MADRID, NO NEW ORDERS PT ON APPROPRIATE ABX
== END 2023-10-27 03:28 | disposition home or self-care (01) ==
PROVIDERS: Emergency Provider Emergency Medicine; PCP Nurse Practitioner
DX: L02.413 Cutaneous abscess of right upper limb (principal); L03.113 Cellulitis of right upper limb; B96.89 Other specified bacterial agents as the cause of diseases classified elsewhere; E87.6 Hypokalemia; R74.02 Elevation of levels of lactic acid dehydrogenase [LDH]; F15.129 Other stimulant abuse with intoxication, unspecified; F14.129 Cocaine abuse with intoxication, unspecified
CPT/HCPCS: 10061; 73201; 80053; 80307; 80324; 82550; 83605; 85025; 86140; 87040; 87077; 87186; 96361; 96374; 96375; 96376; 99285; G0480; J0131; J0875; J1170; J1885; J7060; J7120; Q9967

== ENCOUNTER 2024-07-07 22:24 | Emergency (ER) | payer MEDICAID, SELFPAY ==
[2024-07-07 22:33] VITALS: BP 147/120; PULSE 75; RESP 20; TEMP 36.9; O2SAT 95; BMI 34.3
[2024-07-07] MEDS: LIDOCAINE/PRILOCAINE 5GM TUBE 5 GM TP (23:00)
[2024-07-07] MEDS: ONDANSETRON 4MG ODT 4 MG SL (23:01)
[2024-07-07] MEDS: HYDROMORPHONE 2MG/ML SYRINGE 2 MG IM (23:02)
--- NOTE | 2024-07-07 23:20 | ED_ITS ---
Discharge Plan Disposition Patient Disposition: Home, Self-Care Condition: Good Prescriptions Prescriptions: New sulfamethoxazole-trimethoprim [Bactrim DS] 800-160 mg tablet 1 tab PO BID 14 Days Qty: 28 0RF No Action hydroxyzine HCl 25 mg tablet 25 mg PO BID PRN (Reason: Anxiety) paroxetine HCl [Paxil] 40 mg tablet 40 mg PO DAILY hydrocodone-acetaminophen [[place]] 10-325 mg tablet 1 tab PO Q4-6H PRN (Reason: pain) gabapentin 300 mg tablet extended release 24 hr 300 mg PO TID fluticasone propionate [Flonase Allergy Relief] 50 mcg/actuation spray,suspension 1 spray INTRANASAL DAILY montelukast [Singulair] 10 mg tablet 10 mg PO QHS levofloxacin 750 mg tablet 750 mg PO DAILY 7 Days Qty: 7 0RF bacitracin [Bacitraycin Plus] 500 unit/gram ointment 1 applic topical BID Qty: 28 0RF sulfamethoxazole-trimethoprim [Bactrim DS] 800-160 mg Tablet 1 tab PO BID Qty: 20 0RF cephalexin 500 mg capsule 500 mg PO QID Qty: 40 0RF mupirocin 2 % ointment 1 applic topical TID 7 Days Qty: 15 0RF Referrals Follow up/Referrals: Lilia Cheema APRN [Primary Care Provider] - See instructions Activity Restrictions/Add. Instructions Additional Instructions/Restrictions: You were evaluated in the emergency department today. Expect that your wounds will continue to drain. Keep them covered with a clean dressing. Do not some urgent wounds under any water until they are healed. Follow-up with your primary care provider over the next week for reassessment of your wounds. sterile supervisor your prescription for antibiotic and take the full course as prescribed. Return to the emergency department right away for new or worsening symptoms. Clinical Impressions Clinical Impression: Cellulitis and abscess of upper extremity Instructions Patient Instructions: DI for Cellulitis -- Adult, DI for Incision and Drainage of a Skin Abscess, DI for Skin Abscess Print Language Print Language: [place] Discharge ED Provider: Anisa Kessler General Adult HPI General Chief complaint: Skin/Abscess/Foreign Body Stated complaint: poss abcess on RT arm Time Seen by Provider: 07/07/24 22:43 Mode of Arrival: Ambulatory Source of Information: Patient Description of Symptoms (Recalled from ER Triage Doc. by RN): abcess under right arm History of Present Illness HPI narrative: This patient is a 48-year-old female with remote history of IV drug use states that she has been clean for 2-1/2 years now on Sublocade shots presenting to the emergency department for evaluation with concern for redness, pain, swelling of her right upper arm. She notes that she has trash and debris in her arm from shooting up dirty drugs in the past. She states that periodically, these areas will become inflamed and she will develop wounds as what ever is embedded in her skin will try to work its way out. She has had to have abscesses drained in the past. She denies any fevers or other systemic symptoms. She only complains of pain, redness, swelling to the right upper arm. Related Data Home Medications ?Medication ?Instructions ?Recorded ?Confirmed fluticasone propionate 50 1 spray intranasal DAILY Breathing 07/01/17 07/01/17 mcg/actuation nasal problems spray,suspension (Flonase Allergy Relief) gabapentin 300 mg tablet,extended 300 mg PO TID Pain 07/01/17 07/01/17 release 24 hr hydrocodone 10 mg-acetaminophen 1 tab PO Q4-6H PRN pain 07/01/17 07/01/17 325 mg tablet ([place]) hydroxyzine HCl 25 mg tablet 25 mg PO BID PRN Anxiety 07/01/17 07/01/17 montelukast 10 mg tablet 10 mg PO QHS allergies 07/01/17 07/01/17 (Singulair) paroxetine HCl 40 mg tablet (Paxil) 40 mg PO DAILY Depression 07/01/17 07/01/17 Previous Rx's ?Medication ?Instructions ?Recorded cephalexin 500 mg capsule 500 mg PO QID #40 caps 11/04/22 mupirocin 2 % topical ointment 1 applic topical TID 7 days #15 11/04/22 grams sulfamethoxazole 800 1 tab PO BID #20 tabs 11/04/22 mg-trimethoprim 160 mg tablet (Bactrim DS) bacitracin 500 unit/gram topical 1 applic topical BID #28 grams 10/27/23 ointment (Bacitraycin Plus) levofloxacin 750 mg tablet 750 mg PO DAILY 7 days #7 tabs 10/27/23 sulfamethoxazole 800 1 tab PO BID 14 days #28 tabs 03/22/25 mg-trimethoprim 160 mg tablet (Bactrim DS) Allergies Allergy/AdvReac Type Severity Reaction Status Date / Time ketorolac (From TORADOL) Allergy Intermediate I-RASH Verified 07/01/17 16:25 NSAIDS (Non-Steroidal Allergy Intermediate I-HIVES Verified 07/01/17 16:25 Anti-Inflamma (NSAIDS (NON-STEROIDAL ANTI-INFLAMMA) tramadol (TRAMADOL) Allergy Intermediate I-ITCHING Verified 07/01/17 16:25 morphine Allergy Mild Hives Verified 07/01/17 16:25 amoxicillin (AMOXICILLIN) Allergy Unknown Verified 07/01/17 16:25 From RED DYE (FOOD/DRUG) Allergy Intermediate I-ITCHING Uncoded 07/01/17 13:53 [facility] Disclaimer: The information contained in this section may have been updated after the patient was seen, as this information can be updated by other users. Social History Smoking Status: Current every day smoker tobacco type: cigarettes packs per day: 1 alcohol intake: never substance use type: denies use current occupational status: employed Travel in the last 8 weeks: None Have you lived/traveled outside [place] in past 30 days?: No Contact w/someone who lives/traveled outside US past 30 days?: No Exposure to someone with infectious disease in past 14 days?: No Do you have a fever (greater than 100.4 F or 38 C)?: No Have you tested positive for COVID-19: No Exposed to someone with COVID-19 in past 14 days?: No Do you have a sore throat?: No Do you have a cough?: No Do you have any weakness?: No Do you have any diarrhea?: No Are you experiencing any unusual bleeding?: No Do you have any muscle aches/pain?: No Do you have any abdominal pain?: No Are you experiencing loss of taste or smell?: No Other Medical History Have you received the Flu Vaccine for this season: No Have you received the Pneumonia Vaccine: No ROS Obtained: Yes All systems reviewed & no additional complaints except as documented Physical Exam General General appearance: alert and in no apparent distress Head Head exam: atraumatic and normocephalic Eye Eye exam: Present normal appearance, PERRL and EOMI ENT ENT exam: Present normal exam, normal oropharynx, mucous membranes moist and normal external ear exam Neck Neck exam: Present normal inspection, full ROM and trachea midline; Absent tenderness Chest Chest inspection: Present normal inspection and symmetric chest wall rise; Absent tenderness Respiratory Respiratory exam: Present normal lung sounds bilaterally; Absent respiratory distress, wheezes, stridor or accessory muscle use Cardiovascular Cardiovascular exam: Present regular rate and normal rhythm Abdominal Exam Abdominal exam: Present soft; Absent distention, tenderness or guarding Extremities Exam Extremities exam: Present full ROM, tenderness, normal capillary refill, edema and other (Redness, warmth, swelling to the right upper arm with palpable area of induration. She also has an open wound to the right upper arm that is draining serosanguineous fluid. No significant red streaking away. Neurovascularly intact distally.) Expanded Upper Extremity Exam Right: L/R Arms Top View: 2 1. Small open wound 2. Localized area of erythema, tenderness, central induration Back Exam Back exam: Present normal inspection and full ROM; Absent tenderness Neurological Exam Neurological exam: Present alert, oriented X3, CN II-XII intact and normal gait; Absent motor sensory deficit Psychiatric Psychiatric exam: Present normal affect and normal mood Skin Skin exam: Present warm and dry Medical Decision Making Medical Records Medical records reviewed: Yes I reviewed the patient's medical records. Screening: Per USPSTF and CDC recommendations, given the prevalence of disease in our region, it is our hospital?s policy to screen for HIV and viral Hepatitis for all patients aged 18 and over and those with ongoing risk factors. Robert Inquiry Pt receiving controlled substance: No Vital Signs: 07/07/24 22:33 07/08/24 00:04 Temperature 98.4 F 98.1 F Temperature Source Oral Pulse Rate 86 Pulse Rate [Left Brachial] 75 Respiratory Rate 20 20 Blood Pressure 133/86 Blood Pressure [Left Arm] 147/120 H Blood Pressure Mean [Left Arm] 129 Blood Pressure Source [Left Arm] Automatic Cuff Blood Pressure Position [Left Arm] Sitting 02 Sat by Pulse Oximetry 95 Oxygen Delivery Method Room Air Room Air Lab Data Lab results reviewed: Yes I reviewed the patient's lab results. Orders (Tests/Meds): ED MEDICATIONS Discontinued Medications Generic Name Dose Route Start Last Admin Trade Name Freq PRN Reason Stop Dose Admin Hydromorphone HCl 2 mg 07/07/24 22:58 07/07/24 23:02 Hydromorphone 2mg/Ml Syringe IM 07/07/24 22:59 2 mg ONCE ONE Administration Lidocaine/Epinephrine 20 ml 07/07/24 22:58 07/08/24 00:02 Lidocaine 1% W/Epi 1:100,000 20ml Vial IJ 07/07/24 22:59 4 ml ONCE ONE Administration Lidocaine/Prilocaine 5 gm 07/07/24 22:58 07/07/24 23:00 Lidocaine/Prilocaine 5gm Tube TP 07/07/24 22:59 5 gm ONCE ONE Administration Ondansetron HCl 4 mg 07/07/24 22:58 07/07/24 23:01 Ondansetron 4mg Odt SL 07/07/24 22:59 4 mg ONCE ONE Administration Trimethoprim/Sulfamethoxazole 1 each 07/07/24 23:54 07/08/24 00:00 Sulfa/Trimethoprim 1 Tablet PO 07/07/24 23:55 1 each ONCE ONE Administration ORDERS Category Date Time Status POCUS Point of Care (ER Only) Stat Exams 07/07/24 22:49 Completed HIV Combo Routine Lab 07/07/24 22:35 Ordered Hepatitis C Ab Qual. W/ RFX Routine Lab 07/07/24 22:35 Ordered Wound Culture and Gram Stain Stat Micro 07/07/24 23:31 Received Medical Decision Narrative: In summary, this patient is a 48-year-old female presenting to the Emergency Department for evaluation of right upper arm redness, pain, swelling with concern that she is developed another abscess that needs to be drained. She has a remote history of IV drug use but reports she has been clean for 2-1/2 years.. Differential diagnoses considered include but are not limited to abscess, cellulitis, foreign body. Ruling out the most morbid conditions drove assessment. It should be noted patient's history includes remote history of drug use which is reportedly at goal therapy. This complicates all aspects of care by increasing patient's risk for morbidity. I reviewed patient's past medical records and noted previous evaluation in the ED 10/26/2023 for similar issue at which point patient required incision and drainage of an forearm abscess. On exam, the patient is well-appearing. She has reassuring vital signs apart of telemetry with exception of mild hypertension. I am not concerned for sepsis based on reassuring clinical exam. She has very localized redness, warmth, tenderness, induration to the right upper arm with a small open wound not overlying the area of maximal induration. [id number] ultrasound was performed that confirms two abscesses around 2 cm each of the soft tissues of the right upper arm. After informed consent was obtained after risk versus benefit explanation of incision and drainage, including inability to express fluid, failure procedure, need for repeat procedure, pain, and bleeding, patient agrees to incision and drainage. She requests IM Dilaudid, she states she was given Dilaudid last time for purpose of procedure. She also requests topical numbing cream prior to the injection of numbing medication. Emla was placed over the area, patient was given IM Dilaudid. To prevent nausea, I also administered oral Zofran. Lidocaine with epi was pulled for purpose of procedure. Procedure note: I&D of abscess 1: Area was prepped with Betadine, anesthetized with lidocaine with epinephrine. Negative aspiration for blood at time of injection of lidocaine with good anesthesia achieved. 2cc lidocaine instilled. Single stab incision was made with expression of cloudy/bloody fluid, about 2cc. Culture was sent. Patient tolerated well with no immediate complications. Hemostasis achieved afterward. Remained neurovascularly intact. I&D of abscess 2: Area was prepped with Betadine, and is attached with lidocaine with epinephrine. Negative aspiration for blood at time of injection of lidocaine with good anesthesia achieved. 2cc lidocaine instilled. Single stab incision made, not much material expressed. Ultrasound used for needle aspiration of 2cc of cloudy sanguinous fluid. Patient tolerated well with no immediate complications. Hemostasis achieved afterward. Remained neurovascularly intact. Patient tolerated procedures very well and at this time was deemed to be appropriate for discharge after sterile dressing was applied to wound. I prescribed her Bactrim to treat cellulitis and abscess of the upper extremity. She was given instructions for close follow-up for wound check, instructions for wound care, and strict return precautions. She was discharged after all questions were answered. Procedures Limited Ultrasound Interpretation:: Limited soft tissue ultrasound Indication: Right upper arm soft tissue pain, swelling, and redness Identified structures: Location: Right upper arm Findings: Abscesses x 2, about 2cm each, and cellulitis of the soft tissues of the right upper arm; no appreciable gas, no appreciable foreign body Impression: Abscesses x 2 and cellulitis Images were saved to permanent archive The study was technically adequate Soft Tissue CPT Codes: CPT Neck: 23269-85 CPT Upper extremity: 37001-73 CPT Axilla: 97077-36 CPT Chest wall: 68945-70 CPT Breast: 45165-03-RM/LT (complete), 43684-85-CC/LT (limited), CPT Upper Back: 05556-80 CPT Lower Back: 10674-28 CPT Abdominal Wall: 04611-66 CPT Pelvic Wall: 28179-44 CPT Lower Extremity: 39525-03 CPT Other Soft Tissue: 15223-45 This study was performed by me, and I personally interpreted all images/videos. Based on my clinical judgement, these images were adequate and did not necessitate further imaging. Critical Care Critical Care Time Critical Care Time: No
[2024-07-08] MEDS: SULFA/TRIMETHOPRIM 1 TABLET 1 EACH PO
[2024-07-08] MEDS: LIDOCAINE 1% W/EPI 1:100,000 20ML VIAL 20 ML IJ (00:02)
[2024-07-08 00:04] VITALS: BP 133/86; PULSE 86; RESP 20; TEMP 36.7; O2SAT 99
== END 2024-07-08 00:04 | disposition home or self-care (01) ==
PROVIDERS: Emergency Provider Emergency Medicine; PCP Nurse Practitioner
DX: L02.413 Cutaneous abscess of right upper limb (principal); L03.113 Cellulitis of right upper limb; L53.9 Erythematous condition, unspecified; R22.31 Localized swelling, mass and lump, right upper limb; M79.621 Pain in right upper arm; S41.101A Unspecified open wound of right upper arm, initial encounter; F17.210 Nicotine dependence, cigarettes, uncomplicated; F19.11 Other psychoactive substance abuse, in remission; Z79.899 Other long term (current) drug therapy; Z79.891 Long term (current) use of opiate analgesic; Z88.5 Allergy status to narcotic agent; Z88.8 Allergy status to other drugs, medicaments and biological substances; Z91.02 Food additives allergy status
CPT/HCPCS: 10160; 10060; 10061; 76942; 87070; 87205; 96372; 99284; J1171; Q0162

== ENCOUNTER 2024-07-29 13:56 | Observation (INO) | payer MEDICAID, SELFPAY ==
[2024-07-29] VITALS (12 sets, daily range): BP systolic 94–130; BP diastolic 57–87; PULSE 57–89; RESP 16–18; TEMP 36.3–36.7; O2SAT 96–99; BMI 34.3
--- NOTE | 2024-07-29 14:51 | CT_ITS ---
PROCEDURE INFORMATION: Exam: CT Right Upper Extremity With Contrast, Upper Arm Exam date and time: 07/29/2024 3:33 PM Age: 48 years old Clinical indication: Abnormal findings; Abnormal imaging study of the limbs; Deep abnormality on u/s; Additional info: Right upper arm sts, deep abnormality on u/s TECHNIQUE: Imaging protocol: Computed tomography of the right upper extremity with contrast. Exam focused on the upper arm. Radiation optimization: All CT scans at this facility use at least one of these dose optimization techniques: automated exposure control; mA and/or kV adjustment per patient size (includes targeted exams where dose is matched to clinical indication); or iterative reconstruction. Contrast material: ISOVUE; Contrast volume: 75 ml; Contrast route: IV; COMPARISON: No relevant prior studies available. FINDINGS: Bones/joints: Normal. No acute fracture or dislocation. Soft tissues: Multiple Serpiginous fluid collections in the subcutaneous fat in the lateral upper arm series 9, image 71 -49. They have enhancing fisher and are likely abscesses. Largest measures 3.5 cm. IMPRESSION: Multiple Serpiginous fluid collections in the subcutaneous fat in the lateral upper arm series 9, image 71 -49. They have enhancing fisher and are likely abscesses. Largest measures 3.5 cm.
--- NOTE | 2024-07-29 14:55 | ED_ITS ---
Discharge Plan Disposition Patient Disposition: Admitted Condition: Good Clinical Impressions Clinical Impression: Abscess Discharge ED Provider: Rudy Guzman General Adult HPI <ROSA Mondragon - Last Filed: 07/29/24 16:27> General Chief complaint: Skin/Abscess/Foreign Body Stated complaint: Cyst R arm swelling/pain Time Seen by Provider: 07/29/24 13:58 Mode of Arrival: Ambulatory Source of Information: Patient Description of Symptoms (Recalled from ER Triage Doc. by RN): pt to the ED for a reoccuring abcess on her right upper arm. pt reports she has had multipe I&Ds here in the ED, Her last being on 07/07. pt finished her full course of Bactrim and felt the abcess improved until the last few days. on assessment affected area is red, swollen and warm to the touch. History of Present Illness HPI narrative: Patient presents with right upper arm redness, swelling and induration. She reports that she has had multiple cyst in this region in the past. She had an I&D here last month and completed Bactrim. She reports there was another area that she incised herself without any purulent discharge. She reports she has had sweats and has been feeling hot. She denies any vomiting. MD complaint: right arm pain Onset (ago): week(s) Location: upper extremity Radiation: extremity Consistency: constant Relieving factors: none Exacerbating factors: none Associated symptoms: fever/chills (sweats); negative nausea/vomiting Related Data Home Medications ?Medication ?Instructions ?Recorded ?Confirmed hydroxyzine HCl 25 mg tablet 25 mg PO BID PRN Anxiety 07/01/17 07/29/24 cyclobenzaprine 10 mg tablet 10 mg PO TID PRN Pain 07/29/24 07/29/24 lisinopril 5 mg tablet 5 mg PO BID 07/29/24 07/29/24 magnesium oxide 400 mg PO DAILY 07/29/24 07/29/24 melatonin 10 mg tablet 10 mg PO HS PRN Sleep 07/29/24 07/29/24 pyridoxine (vitamin B6) 25 mg 25 mg PO HS 07/29/24 07/29/24 tablet (Vitamin B-6) trazodone 100 mg tablet 100 mg PO HS 07/29/24 07/29/24 ipratropium 20 mcg-albuterol 100 2 puff inhalation Q6HP PRN 07/30/24 07/30/24 mcg/actuation mist for inhalation Breathing Problems (Combivent Respimat) venlafaxine 150 mg 150 mg PO DAILY 07/30/24 07/30/24 capsule,extended release 24 hr Previous Rx's ?Medication ?Instructions ?Recorded ketorolac 10 mg tablet 10 mg PO Q6H PRN pain #14 tabs 07/31/24 sulfamethoxazole 800 1 tab PO BID #18 tabs 07/31/24 mg-trimethoprim 160 mg tablet (Bactrim DS) Allergies Allergy/AdvReac Type Severity Reaction Status Date / Time diphenhydramine (From AdvReac Palpitation Verified 07/29/24 18:03 Benadryl) s PFSH <ROSA Mondragon - Last Filed: 07/29/24 16:27> [facility] Disclaimer: The information contained in this section may have been updated after the patient was seen, as this information can be updated by other users. Medical History (Updated 08/04/24 @ 00:00 by Awa Solitario) Appendicitis Gallbladder attack COPD (chronic obstructive pulmonary disease) PTSD (post-traumatic stress disorder) Depression Anxiety HTN (hypertension) Surgical History H/O: hysterectomy Family History (Updated 07/29/24 @ 17:37 by Cheryl Ball RN) Other Family history of cancer Social History (Updated 07/29/24 @ 17:37 by Cheryl Ball RN) Smoking Status: Former smoker tobacco type: cigarettes packs per day: 1 alcohol intake: never substance use type: denies use current occupational status: employed Travel in the last 8 weeks: None Other Medical History Have you received the Flu Vaccine for this season: No Have you received the Pneumonia Vaccine: No <ROSA Mondragon - Last Filed: 07/29/24 16:27> ROS Obtained: Yes Systems reviewed as appropriate & no additional complaints except as documented Physical Exam <ROSA Mondragon - Last Filed: 07/29/24 16:27> General General appearance: alert and in no apparent distress Head Head exam: atraumatic and normocephalic Eye Eye exam: Present normal appearance and EOMI Chest Chest inspection: Present symmetric chest wall rise Respiratory Respiratory exam: Present normal lung sounds bilaterally; Absent wheezes or stridor Cardiovascular Cardiovascular exam: Present regular rate and normal rhythm; Absent systolic murmur Extremities Exam Extremities exam: Present full ROM Neurological Exam Neurological exam: Present alert and oriented X3 Psychiatric Psychiatric exam: Present normal affect and normal mood Skin Skin exam: Present other (Right upper arm 2 cm area of erythema with some fluctuance, several inches of induration noted) Medical Decision Making <ROSA Mondragon - Last Filed: 07/29/24 16:27> Medical Records Screening: Per USPSTF and CDC recommendations, given the prevalence of disease in our region, it is our hospital?s policy to screen for HIV and viral Hepatitis for all patients aged 18 and over and those with ongoing risk factors. Vital Signs: 07/29/24 14:03 07/29/24 14:14 07/29/24 14:15 Temperature 98.1 F Temperature Source Oral Pulse Rate 89 82 Pulse Rate [Left Radial] 89 Respiratory Rate 17 Blood Pressure 114/87 125/70 Blood Pressure [Right Arm] 114/87 Blood Pressure Mean Blood Pressure Mean [Right Arm] 96 Blood Pressure Source [Right Arm] Automatic Cuff Blood Pressure Position [Right Arm] Sitting 02 Sat by Pulse Oximetry 98 99 99 Oxygen Delivery Method Room Air Room Air Room Air 07/29/24 15:49 07/29/24 16:00 07/29/24 16:15 Temperature Temperature Source Pulse Rate 82 89 Pulse Rate [Left Radial] Respiratory Rate Blood Pressure 99/64 L 102/57 L 112/67 Blood Pressure [Right Arm] Blood Pressure Mean 74 69 76 Blood Pressure Mean [Right Arm] Blood Pressure Source [Right Arm] Blood Pressure Position [Right Arm] 02 Sat by Pulse Oximetry 97 98 Oxygen Delivery Method Room Air Room Air 07/29/24 16:31 07/29/24 16:45 07/29/24 17:07 Temperature Temperature Source Pulse Rate 89 88 Pulse Rate [Left Radial] Respiratory Rate Blood Pressure 126/67 111/68 Blood Pressure [Right Arm] Blood Pressure Mean 86 76 Blood Pressure Mean [Right Arm] Blood Pressure Source [Right Arm] Blood Pressure Position [Right Arm] 02 Sat by Pulse Oximetry 97 96 Oxygen Delivery Method Room Air Room Air Room Air 07/29/24 17:12 Temperature 97.4 F L Temperature Source Oral Pulse Rate 89 Pulse Rate [Left Radial] Respiratory Rate 18 Blood Pressure 130/84 Blood Pressure [Right Arm] Blood Pressure Mean Blood Pressure Mean [Right Arm] Blood Pressure Source [Right Arm] Blood Pressure Position [Right Arm] 02 Sat by Pulse Oximetry Oxygen Delivery Method Room Air Lab Data Lab Results 07/29/24 15:28: WBC 6.4, RBC 4.19 L, Hgb 12.0 L, Hct 36.2 L, MCV 86.4, MCH 28.6, MCHC 33.1, RDW 12.8, Plt Count 224, MPV 9.2, Neut % (Auto) 50.5, Lymph % (Auto) 34.4, Barton % (Auto) 5.5, Eos % (Auto) 8.8, Baso % (Auto) 0.5, Neut # (Auto) 3.2, Lymph # (Auto) 2.2, Barton # (Auto) 0.4, Eos # (Auto) 0.6 H, Baso # (Auto) 0.0, S odium 135 L, Potassium 4.5, Chloride 102, Carbon Dioxide 26, Anion Gap 11.5, BUN 17, Creatinine 0.90, Estimated Creat Clear 111, Estimated GFR 67, Est GFR ( Amer) 81, Glucose 83, Calcium 9.2 07/31/24 06:18 07/31/24 06:18 Orders (Tests/Meds): ED MEDICATIONS Discontinued Medications Generic Name Dose Route Start Last Admin Trade Name Freq PRN Reason Stop Dose Admin Acetaminophen 650 mg 07/29/24 16:36 Acetaminophen 325mg Tab PO 08/28/24 16:35 Q4HP PRN Fever or Mild Pain (1-3) Hydrocodone Bitart/Acetaminophen 1 tab 07/30/24 16:48 07/31/24 02:29 Hydrocodone/Apap 5/325 Mg Tablet PO 08/29/24 16:47 1 tab Q6HP PRN Administration Moderate Pain (4-6) Hydrocodone Bitart/Acetaminophen 2 tab 07/30/24 16:48 07/30/24 17:47 Hydrocodone/Apap 5/325 Mg Tablet PO 08/29/24 16:47 2 tab Q6HP PRN Administration Severe Pain (7-10) Enoxaparin Sodium 40 mg 07/31/24 09:00 07/31/24 08:10 Enoxaparin 40mg/0.4ml Syringe SUBCUT 08/30/24 08:59 Not Given DAILY USHA Lactated Ringer's 1,000 mls @ 100 mls/hr 07/29/24 21:00 07/31/24 03:00 Lactated Ringer's 1000 Ml Bag IV 08/28/24 20:59 100 mls/hr .Q10H USHA Administration Clindamycin Phosphate 600 mg in 50 mls @ 100 mls/hr 07/29/24 18:30 07/30/24 02:30 Clindamycin 600mg/50ml D5w Premix IV 08/08/24 18:29 100 mls/hr Q8H USHA Administration Cefepime HCl 2 gm/ Sodium 100 mls @ 200 mls/hr 07/29/24 18:30 07/30/24 02:55 Chloride IV 08/08/24 18:29 200 mls/hr Q8H USHA Administration Clindamycin Phosphate 600 mg in 50 mls @ 100 mls/hr 07/30/24 10:30 07/31/24 10:38 Clindamycin 600mg/50ml D5w Premix IV 08/09/24 10:29 100 mls/hr Q8H USHA Administration Cefepime HCl 2 gm/ Sodium 100 mls @ 200 mls/hr 07/30/24 11:00 07/31/24 11:36 Chloride IV 08/09/24 10:59 200 mls/hr Q8H USHA Administration Iopamidol 75 ml 07/29/24 15:35 07/29/24 15:36 Iopamidol-370 (76%);100ml Bottle IV 07/29/24 15:36 75 ml ONCE ONE Administration Ketorolac Tromethamine 30 mg 07/29/24 18:27 07/31/24 10:41 Ketorolac 30mg/Ml Vial IV 08/03/24 18:26 30 mg Q6HP PRN Administration Moderate to Severe Pain (4-10) Melatonin 5 mg 07/29/24 18:45 Melatonin 5mg Tablet PO 08/28/24 18:44 HSP PRN insomnia Ondansetron HCl 4 mg 07/29/24 16:36 Ondansetron 4mg/2ml Vial IV 08/28/24 16:35 Q8HP PRN Nausea Sodium Chloride 10 ml 07/29/24 14:53 Sodium Chloride 0.9% 10ml Flush Syringe IV 08/28/24 14:52 NEEDED PRN Maintain IV Site Sodium Chloride 10 ml 07/29/24 15:35 07/29/24 15:36 Sodium Chloride 0.9% 10ml Syr (Rad Only) IV 07/29/24 15:36 10 ml ONCE ONE Administration Trazodone HCl 50 mg 07/29/24 21:00 07/30/24 21:58 Trazodone 50mg Tablet PO 08/28/24 20:59 50 mg HS USHA Administration ORDERS Category Date Time Status CT humerus RT w con Stat Cat Scan 07/29/24 14:51 Completed General Surgery Consult [Consult to General Surgery] [ Cons 07/29/24 16:39 Ordered CONS] Routine POCUS Point of Care (ER Only) Stat Exams 07/29/24 14:36 Completed BMP [Basic Metabolic Panel] Stat Lab 07/29/24 15:28 Completed CBC w/Auto Diff [Complete Blood Count Auto Diff] Stat Lab 07/29/24 15:28 Completed Complete Blood Count Auto Diff AMLAB Lab 07/30/24 07:54 Completed Complete Blood Count Auto Diff AMLAB Lab 07/31/24 06:18 Completed Comprehensive Metabolic Panel AMLAB Lab 07/30/24 07:54 Completed Comprehensive Metabolic Panel AMLAB Lab 07/31/24 06:18 Completed Lipid Panel AMLAB Lab 07/30/24 07:54 Completed Magnesium AMLAB Lab 07/30/24 07:54 Completed Magnesium AMLAB Lab 07/31/24 06:[address] Data CT Scan: Other (IMPRESSION: Multiple Serpiginous fluid collections in the subcutaneous fat in the lateral upper arm series 9, image 71 -49. They have enhancing fisher and are likely abscesses. Largest measures 3.5 cm. ) Time Received: 16:[address] Reviewed: Yes I have reviewed the patient's CT results Findings Narrative: ED physician informally interpreted the CT results independently US Data ED US Reviewed: Yes I have reviewed the patient's US results Medical Decision Narrative: In summary patient is a 48 year old female who presents the emergency department for evaluation of LUE pain, redness. Patient is hemodynamically stable upon arrival, A-fib. Area concerning for abscess in the left upper arm. Differential diagnosis includes abscess, cellulitis. Initial workup will be conducted with POCUS. Upon repeat evaluation POCUS revealed deeper hypoechoic area with several connected superficial abnormal areas. Will obtain CT of the upper extremity for further evaluation. CT shows abscesses. Largest measures 3.[address] findings discussed with Dr. Bach, patient will be admitted for surgical consultation. <Rudy Guzman MD - Last Filed: 07/29/24 18:36> Robert Inquiry Pt receiving controlled substance: No Vital Signs: 07/29/24 14:03 07/29/24 14:14 07/29/24 14:15 Temperature 98.1 F Temperature Source Oral Pulse Rate 89 82 Pulse Rate [Left Radial] 89 Respiratory Rate 17 Blood Pressure 114/87 125/70 Blood Pressure [Right Arm] 114/87 Blood Pressure Mean Blood Pressure Mean [Right Arm] 96 Blood Pressure Source [Right Arm] Automatic Cuff Blood Pressure Position [Right Arm] Sitting 02 Sat by Pulse Oximetry 98 99 99 Oxygen Delivery Method Room Air Room Air Room Air 07/29/24 15:49 07/29/24 16:00 07/29/24 16:15 Temperature Temperature Source Pulse Rate 82 89 Pulse Rate [Left Radial] Respiratory Rate Blood Pressure 99/64 L 102/57 L 112/67 Blood Pressure [Right Arm] Blood Pressure Mean 74 69 76 Blood Pressure Mean [Right Arm] Blood Pressure Source [Right Arm] Blood Pressure Position [Right Arm] 02 Sat by Pulse Oximetry 97 98 Oxygen Delivery Method Room Air Room Air 07/29/24 16:31 07/29/24 16:45 07/29/24 17:07 Temperature Temperature Source Pulse Rate 89 88 Pulse Rate [Left Radial] Respiratory Rate Blood Pressure 126/67 111/68 Blood Pressure [Right Arm] Blood Pressure Mean 86 76 Blood Pressure Mean [Right Arm] Blood Pressure Source [Right Arm] Blood Pressure Position [Right Arm] 02 Sat by Pulse Oximetry 97 96 Oxygen Delivery Method Room Air Room Air Room Air 07/29/24 17:12 Temperature 97.4 F L Temperature Source Oral Pulse Rate 89 Pulse Rate [Left Radial] Respiratory Rate 18 Blood Pressure 130/84 Blood Pressure [Right Arm] Blood Pressure Mean Blood Pressure Mean [Right Arm] Blood Pressure Source [Right Arm] Blood Pressure Position [Right Arm] 02 Sat by Pulse Oximetry Oxygen Delivery Method Room Air Lab Data Lab Results 07/29/24 15:28: WBC 6.4, RBC 4.19 L, Hgb 12.0 L, Hct 36.2 L, MCV 86.4, MCH 28.6, MCHC 33.1, RDW 12.8, Plt Count 224, MPV 9.2, Neut % (Auto) 50.5, Lymph % (Auto) 34.4, Barton % (Auto) 5.5, Eos % (Auto) 8.8, Baso % (Auto) 0.5, Neut # (Auto) 3.2, Lymph # (Auto) 2.2, Barton # (Auto) 0.4, Eos # (Auto) 0.6 H, Baso # (Auto) 0.0, S odium 135 L, Potassium 4.5, Chloride 102, Carbon Dioxide 26, Anion Gap 11.5, BUN 17, Creatinine 0.90, Estimated Creat Clear 111, Estimated GFR 67, Est GFR ( Amer) 81, Glucose 83, Calcium 9.2 Orders (Tests/Meds): ED MEDICATIONS Discontinued Medications Generic Name Dose Route Start Last Admin Trade Name Freq PRN Reason Stop Dose Admin Acetaminophen 650 mg 07/29/24 16:36 Acetaminophen 325mg Tab PO 08/28/24 16:35 Q4HP PRN Fever or Mild Pain (1-3) Hydrocodone Bitart/Acetaminophen 1 tab 07/30/24 16:48 07/31/24 02:29 Hydrocodone/Apap 5/325 Mg Tablet PO 08/29/24 16:47 1 tab Q6HP PRN Administration Moderate Pain (4-6) Hydrocodone Bitart/Acetaminophen 2 tab 07/30/24 16:48 07/30/24 17:47 Hydrocodone/Apap 5/325 Mg Tablet PO 08/29/24 16:47 2 tab Q6HP PRN Administration Severe Pain (7-10) Enoxaparin Sodium 40 mg 07/31/24 09:00 07/31/24 08:10 Enoxaparin 40mg/0.4ml Syringe SUBCUT 08/30/24 08:59 Not Given DAILY USHA Lactated Ringer's 1,000 mls @ 100 mls/hr 07/29/24 21:00 07/31/24 03:00 Lactated Ringer's 1000 Ml Bag IV 08/28/24 20:59 100 mls/hr .Q10H USHA Administration Clindamycin Phosphate 600 mg in 50 mls @ 100 mls/hr 07/29/24 18:30 07/30/24 02:30 Clindamycin 600mg/50ml D5w Premix IV 08/08/24 18:29 100 mls/hr Q8H USHA Administration Cefepime HCl 2 gm/ Sodium 100 mls @ 200 mls/hr 07/29/24 18:30 07/30/24 02:55 Chloride IV 08/08/24 18:29 200 mls/hr Q8H USHA Administration Clindamycin Phosphate 600 mg in 50 mls @ 100 mls/hr 07/30/24 10:30 07/31/24 10:38 Clindamycin 600mg/50ml D5w Premix IV 08/09/24 10:29 100 mls/hr Q8H USHA Administration Cefepime HCl 2 gm/ Sodium 100 mls @ 200 mls/hr 07/30/24 11:00 07/31/24 11:36 Chloride IV 08/09/24 10:59 200 mls/hr Q8H USHA Administration Iopamidol 75 ml 07/29/24 15:35 07/29/24 15:36 Iopamidol-370 (76%);100ml Bottle IV 07/29/24 15:36 75 ml ONCE ONE Administration Ketorolac Tromethamine 30 mg 07/29/24 18:27 07/31/24 10:41 Ketorolac 30mg/Ml Vial IV 08/03/24 18:26 30 mg Q6HP PRN Administration Moderate to Severe Pain (4-10) Melatonin 5 mg 07/29/24 18:45 Melatonin 5mg Tablet PO 08/28/24 18:44 HSP PRN insomnia Ondansetron HCl 4 mg 07/29/24 16:36 Ondansetron 4mg/2ml Vial IV 08/28/24 16:35 Q8HP PRN Nausea Sodium Chloride 10 ml 07/29/24 14:53 Sodium Chloride 0.9% 10ml Flush Syringe IV 08/28/24 14:52 NEEDED PRN Maintain IV Site Sodium Chloride 10 ml 07/29/24 15:35 07/29/24 15:36 Sodium Chloride 0.9% 10ml Syr (Rad Only) IV 07/29/24 15:36 10 ml ONCE ONE Administration Trazodone HCl 50 mg 07/29/24 21:00 07/30/24 21:58 Trazodone 50mg Tablet PO 08/28/24 20:59 50 mg HS USHA Administration ORDERS Category Date Time Status CT humerus RT w con Stat Cat Scan 07/29/24 14:51 Completed General Surgery Consult [Consult to General Surgery] [ Cons 07/29/24 16:39 Ordered CONS] Routine POCUS Point of Care (ER Only) Stat Exams 07/29/24 14:36 Completed BMP [Basic Metabolic Panel] Stat Lab 07/29/24 15:28 Completed CBC w/Auto Diff [Complete Blood Count Auto Diff] Stat Lab 07/29/24 15:28 Completed Complete Blood Count Auto Diff AMLAB Lab 07/30/24 07:54 Completed Complete Blood Count Auto Diff AMLAB Lab 07/31/24 06:18 Completed Comprehensive Metabolic Panel AMLAB Lab 07/30/24 07:54 Completed Comprehensive Metabolic Panel AMLAB Lab 07/31/24 06:18 Completed Lipid Panel AMLAB Lab 07/30/24 07:54 Completed Magnesium AMLAB Lab 07/30/24 07:54 Completed Magnesium AMLAB Lab 07/31/24 06:18 Completed Medical Decision Narrative: In summary patient is a 48 year old female who presents the emergency department for evaluation of LUE pain, redness. Patient is hemodynamically stable upon arrival, A-fib. Area concerning for abscess in the left upper arm. Differential diagnosis includes abscess, cellulitis. Initial workup will be conducted with POCUS. Upon repeat evaluation POCUS revealed deeper hypoechoic area with several connected superficial abnormal areas. Will obtain CT of the upper extremity for further evaluation. CT shows abscesses. Largest measures 3.[address] findings discussed with Dr. Bach, patient will be admitted for surgical consultation. I was consulted by the GERARD, and we discussed the complexity of the problems being addressed. I approved the treatment and management plan for this patient's care in the Emergency Department, thus performing a substantive portion of the medical decision making. Rudy Guzman MD <Tahir Grijalva MD - Last Filed: 08/08/24 14:57> Vital Signs: 07/29/24 14:03 07/29/24 14:14 07/29/24 14:15 Temperature 98.1 F Temperature Source Oral Pulse Rate 89 82 Pulse Rate [Left Radial] 89 Respiratory Rate 17 Blood Pressure 114/87 125/70 Blood Pressure [Right Arm] 114/87 Blood Pressure Mean Blood Pressure Mean [Right Arm] 96 Blood Pressure Source [Right Arm] Automatic Cuff Blood Pressure Position [Right Arm] Sitting 02 Sat by Pulse Oximetry 98 99 99 Oxygen Delivery Method Room Air Room Air Room Air 07/29/24 15:49 07/29/24 16:00 07/29/24 16:15 Temperature Temperature Source Pulse Rate 82 89 Pulse Rate [Left Radial] Respiratory Rate Blood Pressure 99/64 L 102/57 L 112/67 Blood Pressure [Right Arm] Blood Pressure Mean 74 69 76 Blood Pressure Mean [Right Arm] Blood Pressure Source [Right Arm] Blood Pressure Position [Right Arm] 02 Sat by Pulse Oximetry 97 98 Oxygen Delivery Method Room Air Room Air 07/29/24 16:31 07/29/24 16:45 07/29/24 17:07 Temperature Temperature Source Pulse Rate 89 88 Pulse Rate [Left Radial] Respiratory Rate Blood Pressure 126/67 111/68 Blood Pressure [Right Arm] Blood Pressure Mean 86 76 Blood Pressure Mean [Right Arm] Blood Pressure Source [Right Arm] Blood Pressure Position [Right Arm] 02 Sat by Pulse Oximetry 97 96 Oxygen Delivery Method Room Air Room Air Room Air 07/29/24 17:12 Temperature 97.4 F L Temperature Source Oral Pulse Rate 89 Pulse Rate [Left Radial] Respiratory Rate 18 Blood Pressure 130/84 Blood Pressure [Right Arm] Blood Pressure Mean Blood Pressure Mean [Right Arm] Blood Pressure Source [Right Arm] Blood Pressure Position [Right Arm] 02 Sat by Pulse Oximetry Oxygen Delivery Method Room Air Lab Data Lab Results 07/29/24 15:28: WBC 6.4, RBC 4.19 L, Hgb 12.0 L, Hct 36.2 L, MCV 86.4, MCH 28.6, MCHC 33.1, RDW 12.8, Plt Count 224, MPV 9.2, Neut % (Auto) 50.5, Lymph % (Auto) 34.4, Barton % (Auto) 5.5, Eos % (Auto) 8.8, Baso % (Auto) 0.5, Neut # (Auto) 3.2, Lymph # (Auto) 2.2, Barton # (Auto) 0.4, Eos # (Auto) 0.6 H, Baso # (Auto) 0.0, S odium 135 L, Potassium 4.5, Chloride 102, Carbon Dioxide 26, Anion Gap 11.5, BUN 17, Creatinine 0.90, Estimated Creat Clear 111, Estimated GFR 67, Est GFR ( Amer) 81, Glucose 83, Calcium 9.2 Orders (Tests/Meds): ED MEDICATIONS Discontinued Medications Generic Name Dose Route Start Last Admin Trade Name Freq PRN Reason Stop Dose Admin Acetaminophen 650 mg 07/29/24 16:36 Acetaminophen 325mg Tab PO 08/28/24 16:35 Q4HP PRN Fever or Mild Pain (1-3) Hydrocodone Bitart/Acetaminophen 1 tab 07/30/24 16:48 07/31/24 02:29 Hydrocodone/Apap 5/325 Mg Tablet PO 08/29/24 16:47 1 tab Q6HP PRN Administration Moderate Pain (4-6) Hydrocodone Bitart/Acetaminophen 2 tab 07/30/24 16:48 07/30/24 17:47 Hydrocodone/Apap 5/325 Mg Tablet PO 08/29/24 16:47 2 tab Q6HP PRN Administration Severe Pain (7-10) Enoxaparin Sodium 40 mg 07/31/24 09:00 07/31/24 08:10 Enoxaparin 40mg/0.4ml Syringe SUBCUT 08/30/24 08:59 Not Given DAILY USHA Lactated Ringer's 1,000 mls @ 100 mls/hr 07/29/24 21:00 07/31/24 03:00 Lactated Ringer's 1000 Ml Bag IV 08/28/24 20:59 100 mls/hr .Q10H USHA Administration Clindamycin Phosphate 600 mg in 50 mls @ 100 mls/hr 07/29/24 18:30 07/30/24 02:30 Clindamycin 600mg/50ml D5w Premix IV 08/08/24 18:29 100 mls/hr Q8H USHA Administration Cefepime HCl 2 gm/ Sodium 100 mls @ 200 mls/hr 07/29/24 18:30 07/30/24 02:55 Chloride IV 08/08/24 18:29 200 mls/hr Q8H USHA Administration Clindamycin Phosphate 600 mg in 50 mls @ 100 mls/hr 07/30/24 10:30 07/31/24 10:38 Clindamycin 600mg/50ml D5w Premix IV 08/09/24 10:29 100 mls/hr Q8H USHA Administration Cefepime HCl 2 gm/ Sodium 100 mls @ 200 mls/hr 07/30/24 11:00 07/31/24 11:36 Chloride IV 08/09/24 10:59 200 mls/hr Q8H USHA Administration Iopamidol 75 ml 07/29/24 15:35 07/29/24 15:36 Iopamidol-370 (76%);100ml Bottle IV 07/29/24 15:36 75 ml ONCE ONE Administration Ketorolac Tromethamine 30 mg 07/29/24 18:27 07/31/24 10:41 Ketorolac 30mg/Ml Vial IV 08/03/24 18:26 30 mg Q6HP PRN Administration Moderate to Severe Pain (4-10) Melatonin 5 mg 07/29/24 18:45 Melatonin 5mg Tablet PO 08/28/24 18:44 HSP PRN insomnia Ondansetron HCl 4 mg 07/29/24 16:36 Ondansetron 4mg/2ml Vial IV 08/28/24 16:35 Q8HP PRN Nausea Sodium Chloride 10 ml 07/29/24 14:53 Sodium Chloride 0.9% 10ml Flush Syringe IV 08/28/24 14:52 NEEDED PRN Maintain IV Site Sodium Chloride 10 ml 07/29/24 15:35 07/29/24 15:36 Sodium Chloride 0.9% 10ml Syr (Rad Only) IV 07/29/24 15:36 10 ml ONCE ONE Administration Trazodone HCl 50 mg 07/29/24 21:00 07/30/24 21:58 Trazodone 50mg Tablet PO 08/28/24 20:59 50 mg HS USHA Administration ORDERS Category Date Time Status CT humerus RT w con Stat Cat Scan 07/29/24 14:51 Completed General Surgery Consult [Consult to General Surgery] [ Cons 07/29/24 16:39 Ordered CONS] Routine POCUS Point of Care (ER Only) Stat Exams 07/29/24 14:36 Completed BMP [Basic Metabolic Panel] Stat Lab 07/29/24 15:28 Completed CBC w/Auto Diff [Complete Blood Count Auto Diff] Stat Lab 07/29/24 15:28 Completed Complete Blood Count Auto Diff AMLAB Lab 07/30/24 07:54 Completed Complete Blood Count Auto Diff AMLAB Lab 07/31/24 06:18 Completed Comprehensive Metabolic Panel AMLAB Lab 07/30/24 07:54 Completed Comprehensive Metabolic Panel AMLAB Lab 07/31/24 06:18 Completed Lipid Panel AMLAB Lab 07/30/24 07:54 Completed Magnesium AMLAB Lab 07/30/24 07:54 Completed Magnesium AMLAB Lab 07/31/24 06:18 Completed Procedures <Rudy Guzman MD - Last Filed: 07/29/24 18:36> Limited Ultrasound Indication:: Ultrasound-guided line placement Indication: -Difficult access, numerous unsuccessful sticks Identified structures: -Left upper extremity veins Location/access site: -Left upper extremity median vein Vessel patency: -Patent Direct visualization? -Yes Impression: Successful placement of 20-gauge IV catheter in the left upper extremity median vein Images were not saved to permanent archive The study was technically adequate CPT Codes: Venipuncture: 20554-68 Age <3 yo: 51635-59 Age >3yo: 27174-22 Central line <5 yo: 65426-09 Central line >5 yo: 96378-27 This study was performed by ca, and I personally interpreted all images/videos. Based on my clinical judgement, these images were adequate and did not necessitate further imaging Views:: Limited soft tissue ultrasound Indication: Erythema, tenderness, warmth right deltoid Identified structures: Location: Right deltoid soft tissues Findings: Cellulitis with associated large abscess approximately 1 cm deep, 4 to 5 cm in craniocaudal dimension as well as nearly 2 cm wide Impression: Cellulitis with abscess of the subcutaneous soft tissues of the right deltoid. Do not contact muscular fascia Images were saved to permanent archive The study was technically adequate Soft Tissue CPT Codes: CPT Neck: 11215-97 CPT Upper extremity: 46969-94 CPT Axilla: 17250-61 CPT Chest wall: 88127-27 CPT Breast: 10515-72-LZ/LT (complete), 01978-51-UP/LT (limited), CPT Upper Back: 27078-04 CPT Lower Back: 80021-42 CPT Abdominal Wall: 80653-05 CPT Pelvic Wall: 48389-60 CPT Lower Extremity: 95939-22 CPT Other Soft Tissue: 66165-42 This study was performed by ca, and I personally interpreted all images/videos. Based on my clinical judgement, these images were adequate and did not necessitate further imaging. <Tahir Grijalva MD - Last Filed: 08/08/24 14:57> Miscellaneous Procedure Procedure Performed: Soft tissue ultrasound Indication: Soft tissue swelling and redness Identified structures: Soft tissues of the right shoulder Location: Right shoulder Findings: Large hypoechoic area concerning for phlegmon versus abscess that was measured at 3.6 x 2.0 x 1.2 cm in the right deltoid region with multiple superficial communicating areas that had previously drained. Impression: Possible phlegmon/abscess Images were saved to the permanent archive. The study was technically adequate. Soft tissue CPT codes Neck: 55843-17 Upper extremity: 36827-78 Axilla: 48602-66 Chest wall: 21739-87 Breast: 70949-38 (complete), 13529-32-[RT/LT] (limited) Upper back: 73168-76 Abdominal wall: 00671-85 Pelvic wall: 20706-72 Lower extremity: 95260-98 Other soft tissue: 70743-47 This study was performed by me, and I personally interpreted all images/videos. Based on my clinical judgment, these images were adequate and did not necessitate further imaging. Critical Care <Rudy Guzman MD - Last Filed: 07/29/24 18:36> Critical Care Time Critical Care Time: No
--- NOTE | 2024-07-29 15:19 | PC.NURSE ---
Patient with CT ordered with contrast. Patient is a former IV drug user. Patient with multiple scarred gasca up bilateral arms. IV attempts x4 made in total, two of which were US guided. Blood return noted, but unable to thread catheter. Provider made aware. Dr. Guzman now attempting IV with US guidance.
--- NOTE | 2024-07-29 15:33 | PC.NURSE ---
Patient ambulated to CT scan at this time.
[2024-07-29] MEDS: IOPAMIDOL-370 (76%);100ML BOTTLE 75 ML IV (15:36)
[2024-07-29] MEDS: SODIUM CHLORIDE 0.9% 10ML SYR (RAD ONLY) 10 ML IV (15:36)
--- NOTE | 2024-07-29 15:39 | PC.NURSE ---
Patient returned from radiology at this time.
[2024-07-29 15:41] LABS: Basophils % 0.5 % (0.1-2.0); Eosinophils # 0.6 K/mm3 (0.0-0.4); Eosinophils % 8.8 % (0.1-12.0); Hematocrit 36.2 % (37.0-47.0); Lymphocytes # 2.2 K/mm3 (0.7-4.5); Lymphocytes % 34.4 % (10-50); Mean Corpuscular HGB Conc 33.1 g/dL (31.8-35.4); Mean Corpuscular Hemoglobin 28.6 pg (27.0-31.2); Mean Corpuscular Volume 86.4 fl (81-99); Mean Platelet Volume 9.2 fl (7.4-10.4); Monocytes # 0.4 K/mm3 (0.1-1.0); Monocytes % 5.5 % (1.7-9.3); Neutrophils # 3.2 K/mm3 (1.8-7.8); Neutrophils % 50.5 % (37.0-80.0); Nucleated Red Blood Cells # 0 10^3/uL; Nucleated Red Blood Cells % 0 %; Platelet Count 224 K/mm3 (142-424); Red Blood Count 4.19 M/mm3 (4.20-5.40); Red Cell Distribution Width 12.8 % (11.5-17.5); Red Cell Distribution Width-SD 39.8 fL; White Blood Count 6.4 K/mm3 (4.8-10.8)
[2024-07-29 15:42] LABS: Chloride 102 mmol/L (98-107); Potassium 4.5 mmoL/L (3.5-5.1); Sodium 135 mmol/L (136-145)
[2024-07-29 15:45] LABS: Anion Gap 11.5 mEq/L (5-15); Blood Urea Nitrogen 17 mg/dl (7-17); Calcium 9.2 mg/dl (8.4-10.2); Carbon Dioxide 26 mmol/L (22.0-30.0); Creatinine Clearance Estimated 111 mL/min (50-200); Estimated Glomerular Filt Rate 67 ml/min (>60); GFR (African American) 81 ML/MIN (>60); Glucose 83 mg/dl (74-100)
--- NOTE | 2024-07-29 16:23 | PC.NURSE ---
DR ALLEN SPEAKING WITH DR MORALES
--- NOTE | 2024-07-29 16:36 | P.HP_ITS ---
History of Present Illness *Admission Date: 07/29/24 *Reason for visit:: Right shoulder pain *History of present illness: Melissa De Souza is a 48-year-old female with a medical history significant for former IV drug use (fentanyl, sober for 2 and half years), former smoker who presents with worsening right shoulder pain. Patient has had a history of right shoulder abscesses requiring recurrent I&D's in the ED, most recent one on 07/07/2024. She improved after this along with Bactrim, but over the past few days right shoulder pain has gotten worse with several spots of induration and erythema. Denies trauma to the area, IV drug use. CT showed several fluid collections consistent with abscesses in the right lateral forearm. General surgery was consulted by the ED who recommended admission for consideration for I&D tomorrow. Case discussed with ED provider and decision was made to admit for the same. [facility] Disclaimer: The information contained in this section may have been updated after the patient was seen, as this information can be updated by other users. Medical History Appendicitis Gallbladder attack COPD (chronic obstructive pulmonary disease) PTSD (post-traumatic stress disorder) Depression Anxiety HTN (hypertension) Surgical History H/O: hysterectomy Family History (Updated 07/29/24 @ 17:37 by Cheryl Ball RN) Other Family history of cancer Social History (Updated 07/29/24 @ 17:37 by Cheryl Ball RN) Smoking Status: Former smoker tobacco type: cigarettes packs per day: 1 alcohol intake: never substance use type: denies use current occupational status: employed Travel in the last 8 weeks: None Other Medical History Have you received the Flu Vaccine for this season: No Have you received the Pneumonia Vaccine: No Meds Home Medications and Allergies Home Medications ?Medication ?Instructions ?Recorded ?Confirmed ?Type fluticasone propionate 50 1 spray intranasal DAILY Breathing 07/01/17 07/29/24 History mcg/actuation nasal problems spray,suspension (Flonase Allergy Relief) gabapentin 300 mg tablet,extended 300 mg PO TID Pain 07/01/17 07/29/24 History release 24 hr hydrocodone 10 mg-acetaminophen 1 tab PO Q4-6H PRN pain 07/01/17 07/29/24 History 325 mg tablet ([place]) hydroxyzine HCl 25 mg tablet 25 mg PO BID PRN Anxiety 07/01/17 07/29/24 History montelukast 10 mg tablet 10 mg PO QHS allergies 07/01/17 07/29/24 History (Singulair) paroxetine HCl 40 mg tablet (Paxil) 40 mg PO DAILY Depression 07/01/17 07/29/24 History cephalexin 500 mg capsule 500 mg PO QID #40 caps 11/04/22 07/29/24 Rx mupirocin 2 % topical ointment 1 applic topical TID 7 days #15 11/04/22 07/29/24 Rx grams sulfamethoxazole 800 1 tab PO BID #20 tabs 11/04/22 07/29/24 Rx mg-trimethoprim 160 mg tablet (Bactrim DS) bacitracin 500 unit/gram topical 1 applic topical BID #28 grams 10/27/23 07/29/24 Rx ointment (Bacitraycin Plus) levofloxacin 750 mg tablet 750 mg PO DAILY 7 days #7 tabs 10/27/23 07/29/24 Rx sulfamethoxazole 800 1 tab PO BID 14 days #28 tabs 07/07/24 07/29/24 Rx mg-trimethoprim 160 mg tablet (Bactrim DS) New Prescriptions to Start Prescriptions: Allergies Allergy/AdvReac Type Severity Reaction Status Date / Time diphenhydramine (From AdvReac Palpitation Verified 07/29/24 18:03 Benadryl) s Exam Data for Last 24 hours Vital signs and Labs for Last 24 Hours: Temp Pulse Resp BP Pulse Ox O2 Del Method 98.1 F 89 17 112/67 98 Room Air 07/29/24 14:15 07/29/24 16:15 07/29/24 14:15 07/29/24 16:15 07/29/24 16:15 07/29/24 16:15 Laboratory Results - last 24 hr 07/29/24 15:28: WBC 6.4, RBC 4.19 L, Hgb 12.0 L, Hct 36.2 L, MCV 86.4, MCH 28.6, MCHC 33.1, RDW 12.8, Plt Count 224, MPV 9.2, Neut % (Auto) 50.5, Lymph % (Auto) 34.4, [place] % (Auto) 5.5, Eos % (Auto) 8.8, Baso % (Auto) 0.5, Neut # (Auto) 3.2, Lymph # (Auto) 2.2, [place] # (Auto) 0.4, Eos # (Auto) 0.6 H, Baso # (Auto) 0.0, Sodium 135 L, Potassium 4.5, Chloride 102, Carbon Dioxide 26, Anion Gap 11.5, BUN 17, Creatinine 0.90, Estimated Creat Clear 111, Estimated GFR 67, Est GFR ( Amer) 81, Glucose 83, Calcium 9.2 I & O for Last 24 hours: Intake & Output 07/26/24 07/27/24 07/28/24 07/29/24 23:59 23:59 23:59 23:59 Weight 90.718 kg Constitutional Constitutional: no acute distress *Routine HEENT Exam Head: Present normocephalic Eye: Present EOMI and PERRL ENT: Present mucous membranes moist *Routine Neck Exam Neck: Present supple; Absent lymphadenopathy *Routine Respiratory Exam Respiratory: Present CTA bilaterally *Routine Cardiovascular Exam Cardiovascular: Present RRR *Routine Abdominal Exam Abdominal: Present soft and normoactive bowel sounds; Absent tenderness *Routine Rectal Exam Rectal:: deferred *Routine Genitalia Exam Genitalia:: deferred *Routine Extremities Exam Extremities: Absent cyanosis, clubbing or edema Comments: Right upper lateral extremity erythema induration with erythema, tenderness. *Routine Skin Exam Skin: Present warm; Absent rash *Routine Neurological Exam Neurological: Present alert and oriented X3 Assessment and Plan *Assessment and plan (1) Abscess: Status: Acute Category: Medical Code(s): L02.91 - Cutaneous abscess, unspecified Plan Melissa De Souza is a 48-year-old female with a medical history significant for former IV drug use (fentanyl, sober for 2 and half years), former smoker who presents with worsening right shoulder pain. Patient has had a history of right shoulder abscesses requiring recurrent I&D's in the ED, most recent one on 07/07/2024. She improved after this along with Bactrim, but over the past few days right shoulder pain has gotten worse with several spots of induration and erythema. Denies trauma to the area, IV drug use. CT showed several fluid collections consistent with abscesses in the right lateral forearm. General surgery was consulted by the ED who recommended admission for consideration for I&D tomorrow. Case discussed with ED provider and decision was made to admit for the same. #Subcutaneous abscesses ? Former IVDU, sober for 2-1/2 years. On Suboxone. Denies current use. ? Has had recurrent abscesses with I&D's, most recent one on 07/07/2024. ? CT showed several fluid collections consistent with abscesses in the right lateral forearm. ? Dr. Bach recommended admission for consideration for I&D in the morning. N.p.o. at midnight. ? Started clindamycin, cefepime. Follow-up wound, blood cultures. ? IV Toradol, Tylenol for pain control. Avoid opioids as patient is on monthly Sublocade. ? Follow-up A1c. #Former opioid use disorder ? On monthly IM Sublocade. Last administered 06/22/2024 per PDMP. #Anxiety/depression ? Resume home medications once reconciled. Full code DVT prophylaxis: Hold AC for possible I&D in the morning
--- NOTE | 2024-07-29 17:00 | PC.NURSE ---
[facility] NOTIFIED OF ADMISSION
--- NOTE | 2024-07-29 17:24 | PC.NURSE ---
arrived from ED by w/c
[2024-07-29] MEDS: CEFEPIME HCL 2 GM in 0.9 % SODIUM CHLORIDE 100 ML IV (18:40)
[2024-07-29] MEDS: KETOROLAC 30MG/ML VIAL 30 MG IV (18:46)
[2024-07-29] MEDS: TRAZODONE 50MG TABLET 50 MG PO (20:13)
[2024-07-29] MEDS: CLINDAMYCIN PHOSPHATE/D5W 600 MG/50 ML PIGGYBACK 100 MG IV (21:09)
[2024-07-29] MEDS: LACTATED RINGERS 1000ML 1,000 ML 100 ML IV (22:45)
[2024-07-30] VITALS (20 sets, daily range): BP systolic 83–141; BP diastolic 48–89; PULSE 60–93; RESP 16–26; TEMP 36.3–37.1; O2SAT 95–100; BMI 36.1
[2024-07-30] MEDS: CLINDAMYCIN PHOSPHATE/D5W 600 MG/50 ML PIGGYBACK 100 MG IV ×3 (02:30→18:10)
[2024-07-30] MEDS: CEFEPIME HCL 2 GM in 0.9 % SODIUM CHLORIDE 100 ML IV ×3 (02:55→19:58)
--- NOTE | 2024-07-30 04:12 | PC.NURSE ---
Patient is alert and oriented x4. She was observed to have eyes closed, respirations even/unlabored on room air, and no apparent distress for the majority of the night. She has complaints of soreness in her right upper arm; puffiness, tenderness, and pockets were felt with palpation. Scars and scar tissue was observed along the patient's upper extremities. Scheduled medications were administered per JUN. Blood cultures obtained this shift. Upon auscultation of her lungs, expiratory wheezing was heard in the bases bilaterally, diminished sounds throughout. Heart and bowel sounds within normal findings. Patient ambulates independently in her room/to the bathroom without difficulties. Lactated Ringers continue to infuse at 100 mL/hr through ultrasound-guided IV. She has remained NPO since midnight per general surgery consult. At this time, the patient is resting in bed without any further complaints. No new needs thus far. Call light within reach.
--- NOTE | 2024-07-30 06:06 | P.CONS_ITS ---
History of Present Illness *Admission Date: 07/29/24 *Reason for visit:: Right shoulder abscess *History of present illness: Patient is a 48-year-old female from [facility] with medical history of former IV drug use (fentanyl), sober for 2-1/2 years. She has developed an abscess on the right shoulder and was seen in the emergency department on 07/07/2024 at which time she underwent limited incision and drainage and was discharged on Bactrim. She had some transient improvement but then worsening recurrent symptoms. Presented back to the emergency department with induration and erythema. [id number] ultrasound concerning for moderately large abscess. CT scan revealed multiple serpiginous fluid collections in the subcutaneous fat in the lateral upper arm... That have enhancing fisher and are likely abscesses. Largest measures 3.5 cm. She was admitted for inpatient management and surgical consultation for incision and drainage. She denies trauma or IV drug use to the area. [facility] Disclaimer: The information contained in this section may have been updated after the patient was seen, as this information can be updated by other users. Medical History Appendicitis Gallbladder attack COPD (chronic obstructive pulmonary disease) PTSD (post-traumatic stress disorder) Depression Anxiety HTN (hypertension) Surgical History H/O: hysterectomy Family History (Updated 07/29/24 @ 17:37 by Cheryl Ball RN) Other Family history of cancer Social History (Updated 07/29/24 @ 17:37 by Cheryl Ball RN) Smoking Status: Former smoker tobacco type: cigarettes packs per day: 1 alcohol intake: never substance use type: denies use current occupational status: employed Travel in the last 8 weeks: None Have you lived/traveled outside US in past 30 days?: No Contact w/someone who lives/traveled outside US past 30 days?: No Exposure to someone with infectious disease in past 14 days?: No Do you have a fever (greater than 100.4 F or 38 C)?: No Have you tested positive for COVID-19: No Exposed to someone with COVID-19 in past 14 days?: No Do you have a sore throat?: No Do you have a cough?: No Do you have any weakness?: No Are you experiencing any nausea/vomitting?: No Do you have any diarrhea?: No Are you experiencing any unusual bleeding?: No Do you have any muscle aches/pain?: No Do you have any abdominal pain?: No Are you experiencing loss of taste or smell?: No Review of Systems Review of Systems Review of systems:: pertinent systems reviewed and negative unless documented below Meds Home Medications and Allergies Home Medications ?Medication ?Instructions ?Recorded ?Confirmed ?Type hydroxyzine HCl 25 mg tablet 25 mg PO BID PRN Anxiety 07/01/17 07/29/24 History cyclobenzaprine 10 mg tablet 10 mg PO TID PRN Pain 07/29/24 07/29/24 History lisinopril 5 mg tablet 5 mg PO BID BP 07/29/24 07/29/24 History magnesium oxide 400 mg PO DAILY HS 07/29/24 07/29/24 History melatonin 10 mg tablet 10 mg PO HS PRN HS 07/29/24 07/29/24 History pyridoxine (vitamin B6) 25 mg 25 mg PO HS SLEEP 07/29/24 07/29/24 History tablet (Vitamin B-6) trazodone 100 mg tablet 100 mg PO HS HS 07/29/24 07/29/24 History venlafaxine 50 mg tablet 50 mg PO DAILY 07/29/24 07/29/24 History New Prescriptions to Start Prescriptions: Allergies Allergy/AdvReac Type Severity Reaction Status Date / Time diphenhydramine (From AdvReac Palpitation Verified 07/29/24 18:03 Benadryl) s Exam (Inpt) Vital signs and Labs for Last 24 Hours: Temp Pulse Resp BP Pulse Ox O2 Del Method O2 Flow Rate 98.6 F 76 17 101/55 L 97 Room Air 2 07/30/24 04:00 07/30/24 04:00 07/30/24 04:00 07/30/24 04:00 07/29/24 20:00 07/30/24 05:00 07/29/24 19:54 Laboratory Results - last 24 hr 07/29/24 15:28: WBC 6.4, RBC 4.19 L, Hgb 12.0 L, Hct 36.2 L, MCV 86.4, MCH 28.6, MCHC 33.1, RDW 12.8, Plt Count 224, MPV 9.2, Neut % (Auto) 50.5, Lymph % (Auto) 34.4, [place] % (Auto) 5.5, Eos % (Auto) 8.8, Baso % (Auto) 0.5, Neut # (Auto) 3.2, Lymph # (Auto) 2.2, [place] # (Auto) 0.4, Eos # (Auto) 0.6 H, Baso # (Auto) 0.0, S odium 135 L, Potassium 4.5, Chloride 102, Carbon Dioxide 26, Anion Gap 11.5, BUN 17, Creatinine 0.90, Estimated Creat Clear 111, Estimated GFR 67, Est GFR ( Amer) 81, Glucose 83, Calcium 9.2 I & O for Labs for Last 24 Hours: Intake & Output 07/27/24 07/28/24 07/29/24 07/30/24 11:59 11:59 11:59 11:59 Intake Total 1308 / 1308 Output Total 0 / 0 Balance 1308 / 1308 Weight 211 lb 9.6 oz Constitutional: no acute distress Head: Present normocephalic Respiratory: Present CTA bilaterally Cardiac: Present Reg Rate and Rhythm GI: Present soft Rectal (female): Present deferred (female): Present deferred Comment:: On the right upper extremity if there are several small punctate areas consistent with previous incision and drainage. There is a focal area of erythema which is markedly tender. Palpation reveals some deep subcutaneous firmness consistent with tracking abscesses seen on imaging. Results Labs 07/29/24 15:28 07/29/24 15:28 Labs: Laboratory Results - last 24 hr 07/29/24 15:28: WBC 6.4, RBC 4.19 L, Hgb 12.0 L, Hct 36.2 L, MCV 86.4, MCH 28.6, MCHC 33.1, RDW 12.8, Plt Count 224, MPV 9.2, Neut % (Auto) 50.5, Lymph % (Auto) 34.4, [place] % (Auto) 5.5, Eos % (Auto) 8.8, Baso % (Auto) 0.5, Neut # (Auto) 3.2, Lymph # (Auto) 2.2, [place] # (Auto) 0.4, Eos # (Auto) 0.6 H, Baso # (Auto) 0.0, S odium 135 L, Potassium 4.5, Chloride 102, Carbon Dioxide 26, Anion Gap 11.5, BUN 17, Creatinine 0.90, Estimated Creat Clear 111, Estimated GFR 67, Est GFR ( Amer) 81, Glucose 83, Calcium 9.2 Assessment and Plan *Assessment and plan (1) Abscess: Status: Acute Category: Medical Code(s): L02.91 - Cutaneous abscess, unspecified Plan Plan to proceed with incision and drainage with washout of abscess. May need drain versus continued packing.
--- NOTE | 2024-07-30 07:24 | HMH.PHAINT1 ---
Pharmacy Intervention Comments: home medication list verified using list from outpatient pharmacy
[2024-07-30 08:00] LABS: Basophils % 0.3 % (0.1-2.0); Eosinophils # 0.4 K/mm3 (0.0-0.4); Eosinophils % 5.5 % (0.1-12.0); Hematocrit 32.8 % (37.0-47.0); Hemoglobin 10.8 g/dL (12.2-16.2); Lymphocytes # 1.3 K/mm3 (0.7-4.5); Mean Corpuscular HGB Conc 32.9 g/dL (31.8-35.4); Mean Corpuscular Hemoglobin 28.5 pg (27.0-31.2); Mean Corpuscular Volume 86.5 fl (81-99); Monocytes # 0.3 K/mm3 (0.1-1.0); Monocytes % 4.5 % (1.7-9.3); Neutrophils # 4.5 K/mm3 (1.8-7.8); Neutrophils % 69.4 % (37.0-80.0); Nucleated Red Blood Cells # 0 10^3/uL; Nucleated Red Blood Cells % 0 %; Platelet Count 182 K/mm3 (142-424); Red Blood Count 3.79 M/mm3 (4.20-5.40); Red Cell Distribution Width 12.7 % (11.5-17.5); Red Cell Distribution Width-SD 39.9 fL; White Blood Count 6.5 K/mm3 (4.8-10.8)
[2024-07-30 08:08] LABS: Albumin Level 3.8 g/dl (3.5-5.0); Chloride 106 mmol/L (98-107)
[2024-07-30 08:09] LABS: Potassium 4.6 mmoL/L (3.5-5.1); Sodium 137 mmol/L (136-145)
[2024-07-30 08:11] LABS: Alanine Aminotransferase 18 U/L (12-78); Albumin/Globulin Ratio 1.2 (1.1-1.8); Alkaline Phosphatase 60 U/L (38-126); Anion Gap 10.6 mEq/L (5-15); Aspartate Amino Transferase 29 U/L (14-36); Bilirubin,Total 0.3 mg/dl (0.2-1.3); Blood Urea Nitrogen 20 mg/dl (7-17); Carbon Dioxide 25 mmol/L (22.0-30.0); Cholesterol 181 mg/dl (140-200); Creatinine Clearance Estimated 117 mL/min (50-200); Estimated Glomerular Filt Rate 67 ml/min (>60); GFR (African American) 81 ML/MIN (>60); Globulin 3.1 g/dL (1.3-3.2); Total Protein,Serum 6.9 g/dl (6.3-8.2); Triglycerides 83 mg/dl (30-150); VLDL Cholesterol 17 mg/dL (0-40)
[2024-07-30 08:12] LABS: Calcium 8.7 mg/dl (8.4-10.2); Chol/HDL Ratio 2.9 (1-3.5); Glucose 85 mg/dl (74-100); HDL Cholesterol 63 mg/dl (40-60)
[2024-07-30 08:29] LABS: Hemoglobin A1C 4.7 % (4.0-6.0)
--- NOTE | 2024-07-30 10:52 | P.OP_ITS ---
Date of procedure: 07/30/24 Pre-op Diagnosis:: Right upper extremity the abscess subcutaneous Post-op Diagnosis:: Same Procedure performed:: Incision and drainage moderately complex upper extremity abscess with debridement of skin Surgeon:: Wilber Bach MD CHIEF GUARD:: Joshua Fernandez Anesthesia: local and LMA Estimated blood loss (mL): 5 Clinical Note:: Patient is a 48-year-old female from [facility] with medical history of former IV drug use (fentanyl), reportedly sober for 2-1/2 years. She has developed an abscess on the right upper extremity and was seen in the emergency department on 07/07/2024 at which time she underwent limited incision and drainage and was discharged on Bactrim. She had some transient improvement but then worsening recurrent symptoms. Presented back to the emergency department with induration and erythema and tenderness. [id number] ultrasound concerning for moderately large abscess. CT scan revealed multiple serpiginous fluid collections in the subcutaneous fat in the lateral upper arm... That have enhancing fisher and are likely abscesses. Largest measures 3.5 cm. She was admitted for inpatient management and surgical consultation for incision and drainage. She denies trauma or IV drug use to the area. Operative findings:: She had a focal area of induration and mild fluctuance with purulence. There was deep tracking to an abscess in the subcutaneous tissue with a separate punctate area near the surface of the skin. Operative note:: Consent was obtained and patient was taken the operating room. She was positi oned in supine position. Anesthesia was induced via LMA. The area was positioned and prepped and draped. At the site of erythema with induration and mild fluctuance limited incision was made with electrocautery. There was thick pus which exuded from the wound. This was sent for cultures. Limited circular incision was created at this point. The subcutaneous tissues were probed with a Luz clamp to break open the deeper subcutaneous abscess at which time pus exuded from the wound. This tracked superiorly and laterally to a punctate skin scar with scab. Circular incision was made with electrocautery at this point. Decision was made not to open this entire area as the overlying tissues appeared healthy. Any loculations were broken free. Wound was irrigated through and through to the 2 communicating incisions. There was good hemostasis. Local anesthetic was infiltrated. 1/4 inch [place] drain was placed through the wound to exit at the 2 incision sites where it was secured with 2-0 nylon sutures. Clean dry sterile dressing was applied. Condition: stable Disposition: PACU Complications:: None immediately apparent
[2024-07-30] MEDS: ROPIVACAINE 0.5% 30ML VIAL 150 MG (11:10)
[2024-07-30] MEDS: LIDOCAINE 1% 20ML MDV 20 ML (11:10)
--- NOTE | 2024-07-30 11:10 | EXP.ANES.CKL ---
[facility] Disclaimer: The information contained in this section may have been updated after the patient was seen, as this information can be updated by other users. Medical History Appendicitis Gallbladder attack COPD (chronic obstructive pulmonary disease) PTSD (post-traumatic stress disorder) Depression Anxiety HTN (hypertension) Surgical History H/O: hysterectomy Family History (Updated 07/29/24 @ 17:37 by Cheryl Ball RN) Other Family history of cancer Social History (Updated 07/29/24 @ 17:37 by Cheryl Ball RN) Smoking Status: Former smoker tobacco type: cigarettes packs per day: 1 alcohol intake: never substance use type: denies use current occupational status: employed Travel in the last 8 weeks: None Have you lived/traveled outside US in past 30 days?: No Contact w/someone who lives/traveled outside US past 30 days?: No Exposure to someone with infectious disease in past 14 days?: No Do you have a fever (greater than 100.4 F or 38 C)?: No Have you tested positive for COVID-19: No Exposed to someone with COVID-19 in past 14 days?: No Do you have a sore throat?: No Do you have a cough?: No Do you have any weakness?: No Are you experiencing any nausea/vomitting?: No Do you have any diarrhea?: No Are you experiencing any unusual bleeding?: No Do you have any muscle aches/pain?: No Do you have any abdominal pain?: No Are you experiencing loss of taste or smell?: No [facility] Anesthesia Checklist Patient Identification Patient Identification: Arm Band and Family Structural Data Admitted From: Inpatient Planned Operative Procedure/s: I and D Right shoulder abscess. Verified Documents: Surgical Consent and History and Physical NPO Status Verified Time NPO: 00:00 Additional verifications Patient : No Anesthesia Reactions: No Hx Blood Transfusions: No Blood Transfusion Reaction: No Cephalosporin Allergy: No Previous Colonoscopy: No Airway Assessment Mallampati Score:: Class II C-Spine Mobility Assessed: Yes TMJ Mobility Assessed: Yes Dentition: Good Dentition Neurological Assessment Level of Consciousness: Awake, Alert, Appropriate and Follows Commands Hx Seizures: No Numbness or tingling in extremities: No Anesthesia Plan Anesthesia Risk discussed: Yes ASA Class: II Anesthesia Type: MAC
--- NOTE | 2024-07-30 11:37 | PC.NURSE ---
Pt requested to have Vape. Pt was educated on smoking policy and offered a nicotine patch. Pt declines to have nicotine patch. Primary nurse notified.
--- NOTE | 2024-07-30 14:39 | EXP.ANES.II ---
[facility] Anesthesia Record Part II Anesthesia Record Part II Discharge Time: 11:25 Destination: Surgical Day Care (OP Surgery) PACU nurse assessment reviewed?: Yes Patient Condition:: Good Anesthesia Complications:: None Swallowing reflex intact?: Yes Airway Patency: Patent Cyanosis?: No Blood Pressure: 123/77 SaO2: 99 Respiratory Rate: 18 Pulse Rate: 76 Temperature: 98.7 F Mental Status: Alert & Oriented Pain level:: 4 Nausea and/or vomitting:: None Intake, IV Amount: 0 Hydration: Adequate
--- NOTE | 2024-07-30 15:48 | P.PNANES_ITS ---
[facility] Anesthesia Record Part I Anesthesia Record I Intake, IV Amount: 400 Hydration: Adequate Estimated blood loss (mL): 5 Urine output (mL): 0 Blood Products used (#): none Blood Pressure: 134/78 SaO2: 96 Pulse Rate: 87 Airway Patency: Patent Respiratory Rate: 24 Temperature: 97.4 F Patient is:: Drowsy and Stable Stable to PACU at:: 10:55
--- NOTE | 2024-07-30 16:34 | P.PN_ITS ---
Subjective *Date: 07/30/24 *Time: 16:34 Interval history: Patient doing well today, s/p I&D today. She states she wanted to go home today, but is agreeable to staying until tomorrow per general surgery recommendations. Follow-up on cultures. Exam Data for Last 24 hours Vital signs and Labs for Last 24 Hours: Temp Pulse Resp BP Pulse Ox O2 Del Method O2 Flow Rate 97.4 F L 87 24 134/78 100 Room Air 2 07/30/24 15:51 07/30/24 15:51 07/30/24 15:51 07/30/24 15:51 07/30/24 13:15 07/30/24 13:15 07/29/24 19:54 Laboratory Results - last 24 hr 07/30/24 07:54: WBC 6.5, RBC 3.79 L, Hgb 10.8 L, Hct 32.8 L, MCV 86.5, MCH 28.5, MCHC 32.9, RDW 12.7, Plt Count 182, MPV 9.0, Neut % (Auto) 69.4, Lymph % (Auto) 20.0, [place] % (Auto) 4.5, Eos % (Auto) 5.5, Baso % (Auto) 0.3, Neut # (Auto) 4.5, Lymph # (Auto) 1.3, [place] # (Auto) 0.3, Eos # (Auto) 0.4, Baso # (Auto) 0.0, Sodium 137, Potassium 4.6, Chloride 106, Carbon Dioxide 25, Anion Gap 10.6, BUN 20 H, Creatinine 0.90, Estimated Creat Clear 117, Estimated GFR 67, Est GFR ( Amer) 81, Glucose 85, Hemoglobin A1c 4.7, Calcium 8.7, Magnesium 2.0, Total Bilirubin 0.3, AST 29, ALT 18, Alkaline Phosphatase 60, Total Protein 6.9, Albumin 3.8, Globulin 3.1, Albumin/Globulin Ratio 1.2, Triglycerides 83, Cholesterol 181, LDL Cholesterol Direct 80.50 L, VLDL Cholesterol 17, HDL Cholesterol 63 H, Cholesterol/HDL Ratio 2.9 I & O for Last 24 hours: Intake & Output 07/27/24 07/28/24 07/29/24 07/30/24 23:59 23:59 23:59 23:59 Intake Total 2047 Output Total 0 / 0 0 / 0 Balance 0 / 1308 2047 Weight 90.718 kg 95.98 kg Constitutional Constitutional: no acute distress *Routine HEENT Exam Head: Present normocephalic Eye: Present EOMI and PERRL ENT: Present mucous membranes moist *Routine Neck Exam Neck: Present supple; Absent lymphadenopathy *Routine Respiratory Exam Respiratory: Present CTA bilaterally *Routine Cardiovascular Exam Cardiovascular: Present RRR *Routine Abdominal Exam Abdominal: Present soft and normoactive bowel sounds; Absent tenderness *Routine Extremities Exam Extremities: Absent cyanosis, clubbing or edema Comments: Right upper extremity dressed and wrapped. *Routine Skin Exam Skin: Present warm; Absent rash *Routine Neurological Exam Neurological: Present alert and oriented X3 Assessment and Plan *Assessment and plan (1) Abscess: Status: Acute Category: Medical Code(s): L02.91 - Cutaneous abscess, unspecified Plan Melissa De Souza is a 48-year-old female with a medical history significant for former IV drug use (fentanyl, sober for 2 and half years), former smoker who presents with worsening right shoulder pain. Patient has had a history of right shoulder abscesses requiring recurrent I&D's in the ED, most recent one on 07/07/2024. She improved after this along with Bactrim, but over the past few days right shoulder pain has gotten worse with several spots of induration and erythema. Denies trauma to the area, IV drug use. CT showed several fluid collections consistent with abscesses in the right lateral forearm. General surgery was consulted by the ED who recommended admission for consideration for I&D heriberto orrow. Case discussed with ED provider and decision was made to admit for the same. #Subcutaneous abscesses #Right upper extremity cellulitis ? Former IVDU, patient reports being sober for 2-1/2 years. On monthly IM Sublocade. Denies current use. ? Has had recurrent right upper extremity abscesses with I&D's, most recent one on 07/07/2024. ? CT showed several fluid collections consistent with abscesses in the right lateral forearm. ? General Surgery consulted, s/p I&D with Dr. Bach on 07/30/2024. Dr. Bach recommended monitoring overnight, following up on cultures tomorrow. ? Continue clindamycin, cefepime day 2. Follow-up wound, blood cultures. ? IV Toradol, Tylenol for pain control. Last Sublocade more than 1 month ago, will start [place] as needed for pain control as Toradol reportedly is not enough per patient. ? Hemoglobin A1c 4.7%. #Former opioid use disorder ? On monthly IM Sublocade. Last administered 06/22/2024 per PDMP. #Anxiety/depression ? Resume home medications once reconciled. Full code DVT prophylaxis: Lovenox 40 mg
--- NOTE | 2024-07-30 16:53 | PC.NURSE ---
Pt's daughter requested to have pt's Vape to take home with her. Pt was in agreement with daughter taking it. Drawer was unlocked and vape was given to daughter.
[2024-07-30] MEDS: HYDROCODONE/APAP 5/325 MG TABLET 2 TAB PO (17:47)
[2024-07-30] MEDS: LACTATED RINGERS 1000ML 1,000 ML 100 ML IV (18:10)
[2024-07-30] MEDS: TRAZODONE 50MG TABLET 50 MG PO (21:58)
[2024-07-31] MEDS: CLINDAMYCIN PHOSPHATE/D5W 600 MG/50 ML PIGGYBACK 100 MG IV ×2 (02:29→10:38)
[2024-07-31] MEDS: HYDROCODONE/APAP 5/325 MG TABLET 1 TAB PO (02:29)
[2024-07-31] MEDS: LACTATED RINGERS 1000ML 1,000 ML 100 ML IV (03:00)
[2024-07-31] MEDS: CEFEPIME HCL 2 GM in 0.9 % SODIUM CHLORIDE 100 ML IV ×2 (03:57→11:36)
[2024-07-31 04:00] VITALS: BP 113/73; PULSE 70; RESP 18; TEMP 36.7; O2SAT 96; BMI 38.2
--- NOTE | 2024-07-31 04:56 | PC.NURSE ---
v/s, ox4. Pt c/o pain, treated per JUN. IV ABX tolerated well by pt. RUE drainage monitored. No acute events to report, plan of care ongoing.
[2024-07-31 06:30] LABS: Basophils % 0.5 % (0.1-2.0); Eosinophils # 0.4 K/mm3 (0.0-0.4); Eosinophils % 9.6 % (0.1-12.0); Hematocrit 29.9 % (37.0-47.0); Lymphocytes # 1.7 K/mm3 (0.7-4.5); Lymphocytes % 45.9 % (10-50); Mean Corpuscular HGB Conc 33.4 g/dL (31.8-35.4); Mean Corpuscular Hemoglobin 28.5 pg (27.0-31.2); Mean Corpuscular Volume 85.2 fl (81-99); Mean Platelet Volume 9.3 fl (7.4-10.4); Monocytes # 0.3 K/mm3 (0.1-1.0); Monocytes % 6.8 % (1.7-9.3); Neutrophils # 1.4 K/mm3 (1.8-7.8); Neutrophils % 36.9 % (37.0-80.0); Nucleated Red Blood Cells # 0 10^3/uL; Nucleated Red Blood Cells % 0 %; Platelet Count 170 K/mm3 (142-424); Red Blood Count 3.51 M/mm3 (4.20-5.40); Red Cell Distribution Width 12.8 % (11.5-17.5); Red Cell Distribution Width-SD 39.5 fL; White Blood Count 3.7 K/mm3 (4.8-10.8)
[2024-07-31 06:37] LABS: Albumin Level 3.4 g/dl (3.5-5.0); Chloride 106 mmol/L (98-107); Potassium 4.6 mmoL/L (3.5-5.1); Sodium 137 mmol/L (136-145)
[2024-07-31 06:39] LABS: Blood Urea Nitrogen 17 mg/dl (7-17); Creatinine Clearance Estimated 140 mL/min (50-200); Estimated Glomerular Filt Rate 77 ml/min (>60); GFR (African American) 93 ML/MIN (>60)
[2024-07-31 06:40] LABS: Alanine Aminotransferase 15 U/L (12-78); Albumin/Globulin Ratio 1.1 (1.1-1.8); Alkaline Phosphatase 60 U/L (38-126); Anion Gap 10.6 mEq/L (5-15); Aspartate Amino Transferase 25 U/L (14-36); Bilirubin,Total 0.3 mg/dl (0.2-1.3); Calcium 8.7 mg/dl (8.4-10.2); Carbon Dioxide 25 mmol/L (22.0-30.0); Glucose 91 mg/dl (74-100); Magnesium 1.9 mg/dl (1.6-2.3); Total Protein,Serum 6.4 g/dl (6.3-8.2)
[2024-07-31 08:00] VITALS: BP 98/58; PULSE 86; RESP 19; TEMP 37; O2SAT 98
[2024-07-31 09:05] LABS: Amphetamine/Metha Screen,Urine Negative ng/ml (<1000); Barbiturates Screen,Urine Negative ng/ml (<200)
[2024-07-31 09:06] LABS: Benzodiazepines Screen,Urine Positive ng/ml (<200); Cannabinoid Screen,Urine Negative ng/ml (<50)
[2024-07-31 09:07] LABS: Cocaine Screen,Urine Negative ng/ml (<300)
[2024-07-31 09:08] LABS: Methadone Screen,Urine Negative ng/ml (<300); Opiate Screen,Urine Positive ng/ml (<300)
[2024-07-31 09:09] LABS: Phencyclidine Screen,Urine Negative ng/ml (<25)
[2024-07-31] MEDS: KETOROLAC 30MG/ML VIAL 30 MG IV (10:41)
--- NOTE | 2024-07-31 12:12 | EXP.DC.SUM ---
General Admission date:: 07/29/24 Discharge date: 07/31/24 HPI HPI HPI: Patient is a 48-year-old female from [facility] with medical history of former IV drug use (fentanyl), sober for 2-1/2 years. She has developed an abscess on the right shoulder and was seen in the emergency department on 07/07/2024 at which time she underwent limited incision and drainage and was discharged on Bactrim. She had some transient improvement but then worsening recurrent symptoms. Presented back to the emergency department with induration and erythema. [id number] ultrasound concerning for moderately large abscess. CT scan revealed multiple serpiginous fluid collections in the subcutaneous fat in the lateral upper arm... That have enhancing fisher and are likely abscesses. Largest measures 3.5 cm. She was admitted for inpatient management and surgical consultation for incision and drainage. She denies trauma or IV drug use to the area. Hospital Course Hospital Course Hospital Course: Melissa De Souza is a 48-year-old female with a medical history significant for former IV drug use (fentanyl, sober for 2 and half years), former smoker who presents with worsening right shoulder pain. Patient has had a history of right shoulder abscesses requiring recurrent I&D's in the ED, most recent one on 07/07/2024. She improved after this along with Bactrim, but over the past few days right shoulder pain has gotten worse with several spots of induration and erythema. Denies trauma to the area, IV drug use. CT showed several fluid collections consistent with abscesses in the right lateral forearm. General surgery was consulted by the ED who recommended admission for consideration for I&D tomorrow. Case discussed with ED provider and decision was made to admit for the same. Patient was taken for I&D, drain remains in place. Overall is done well. Will transition oral antibiotics to complete 10-day course. Close follow-up with surgery as an outpatient. Stable to discharge home. Problems addressed as follows: #Subcutaneous abscesses #Right upper extremity cellulitis ? Former IVDU, patient reports being sober for 2-1/2 years. On monthly IM Sublocade. Denies current use. Has had recurrent right upper extremity abscesses with I&D's, most recent one on 07/07/2024. CT showed several fluid collections consistent with abscesses in the right lateral forearm. General Surgery consulted, s/p I&D with Dr. Bach on 07/30/2024. Dr. Bach recommended monitoring overnight, following up on cultures. Based on previous history, will transition to Bactrim double strength to complete 10 days of therapy. Prescription sent at discharge. Continue Toradol for pain control. A1c normal at 4.7. Drain remains in place. Continue daily dressing changes. Follow-up with surgery in a week for reevaluation and drain removal. #Former opioid use disorder ? On monthly IM Sublocade. Last administered 06/22/2024 per PDMP. Continue to follow-up with outpatient provider #Anxiety/depression ? Continue home Effexor 150 daily, trazodone 100 mg, hydroxyzine 5 mg twice daily as needed. Total time spent on discharge 32 minutes in counseling, documentation, chart review, and direct care with patient. Exam Data for Last 24 hours Vital signs and Labs for Last 24 Hours: Temp Pulse Resp BP Pulse Ox O2 Del Method O2 Flow Rate 98.6 F 86 19 98/58 L 98 Room Air 2 07/31/24 08:00 07/31/24 08:00 07/31/24 08:00 07/31/24 08:00 07/31/24 08:00 07/31/24 11:00 07/29/24 19:54 Laboratory Results - last 24 hr 07/30/24 08:26: Urine Opiates Screen Positive H, Urine Methadone Screen Negative, Ur Barbituates Screen Negative, Ur Phencyclidine Scrn Negative, Ur Amphetamines Screen Negative, U Benzodiazepines Scrn Positive H, Urine Cocaine Screen Negative, U Marijuana (THC) Screen Negative 07/31/24 06:18: WBC 3.7 L D, RBC 3.51 L, Hgb 10.0 L, Hct 29.9 L, MCV 85.2, MCH 28.5, MCHC 33.4, RDW 12.8, Plt Count 170, MPV 9.3, Neut % (Auto) 36.9 L, Lymph % (Auto) 45.9, [place] % (Auto) 6.8, Eos % (Auto) 9.6, Baso % (Auto) 0.5, Neut # (Auto) 1.4 L, Lymph # (Auto) 1.7, [place] # (Auto) 0.3, Eos # (Auto) 0.4, Baso # (Auto) 0.0, Sodium 137, Potassium 4.6, Chloride 106, Carbon Dioxide 25, Anion Gap 10.6, BUN 17, Creatinine 0.80, Estimated Creat Clear 140, Estimated GFR 77, Est GFR ( Amer) 93, Glucose 91, Calcium 8.7, Magnesium 1.9, Total Bilirubin 0.3, AST 25, ALT 15, Alkaline Phosphatase 60, Total Protein 6.4, Albumin 3.4 L D, Globulin 3.0, Albumin/Globulin Ratio 1.1 I & O for Last 24 hours: Intake & Output 07/28/24 07/29/24 07/30/24 07/31/24 23:59 23:59 23:59 23:59 Intake Total 2178 / 2418 600 / 600 Output Total 0 / 0 0 / 0 0 / 0 Balance 0 / 1308 2178 / 2418 600 / 600 Weight 90.718 kg 95.98 kg 101.786 kg Microbiology Reports for the Last 24 Hours: Microbiology 07/30/24 10:30 Arm,Right - Abscess Gram Stain - Final 07/29/24 Unknown Blood Blood Culture - Preliminary NO GROWTH AFTER 24 HOURS 07/29/24 Unknown Blood Blood Culture - Preliminary NO GROWTH AFTER 24 HOURS Constitutional Constitutional: no acute distress, obese, chronically ill appearing and cooperative *Routine HEENT Exam Head: Present normocephalic Eye: Present EOMI and PERRL ENT: Present mucous membranes moist *Routine Neck Exam Neck: Present supple; Absent lymphadenopathy *Routine Respiratory Exam Respiratory: Present CTA bilaterally; Absent rhonchi, wheezes or crackles *Routine Cardiovascular Exam Cardiovascular: Present RRR *Routine Abdominal Exam Abdominal: Present soft and normoactive bowel sounds; Absent tenderness *Routine Rectal Exam Patient deferred: visual exam *Routine Exam Patient deferred: external exam *Routine Extremities Exam Extremities: Absent cyanosis, clubbing or edema Comments: Right upper extremity with 2 small incisions approximately a centimeter in length connected by Laverne drain. Serous drainage, no purulence. *Routine Skin Exam Skin: Present intact and warm; Absent rash *Routine Neurological Exam Neurological: Present alert, oriented X3 and moving all extremities; Absent altered mental status Results Data Completed and Pending Labs on day of discharge: Labs from last 24 hours 07/31/24 07/30/24 06:18 08:26 WBC 3.7 L D RBC 3.51 L Hgb 10.0 L Hct 29.9 L MCV 85.2 MCH 28.5 MCHC 33.4 RDW 12.8 Plt Count 170 MPV 9.3 Neut % (Auto) 36.9 L Lymph % (Auto) 45.9 [place] % (Auto) 6.8 Eos % (Auto) 9.6 Baso % (Auto) 0.5 Neut # (Auto) 1.4 L Lymph # (Auto) 1.7 [place] # (Auto) 0.3 Eos # (Auto) 0.4 Baso # (Auto) 0.0 Sodium 137 Potassium 4.6 Chloride 106 Carbon Dioxide 25 Anion Gap 10.6 BUN 17 Creatinine 0.80 Estimated Creat Clear 140 Estimated GFR 77 Est GFR ( Amer) 93 Glucose 91 Calcium 8.7 Magnesium 1.9 Total Bilirubin 0.3 AST 25 ALT 15 Alkaline Phosphatase 60 Total Protein 6.4 Albumin 3.4 L D Globulin 3.0 Albumin/Globulin Ratio 1.1 Urine Opiates Screen Positive H Urine Methadone Screen Negative Ur Barbituates Screen Negative Ur Phencyclidine Scrn Negative Ur Amphetamines Screen Negative U Benzodiazepines Scrn Positive H Urine Cocaine Screen Negative U Marijuana (THC) Screen Negative Preliminary micro results at discharge 07/29/24 Unknown Blood Culture - Preliminary Blood NO GROWTH AFTER 24 HOURS 07/29/24 Unknown Blood Culture - Preliminary Blood NO GROWTH AFTER 24 HOURS DS: Diagnosis Discharge Diagnosis (1) Abscess: Status: Acute Code(s): L02.91 - Cutaneous abscess, unspecified Meds Home Medications and Allergies Home Medications ?Medication ?Instructions ?Recorded ?Confirmed ?Type hydroxyzine HCl 25 mg tablet 25 mg PO BID PRN Anxiety 07/01/17 07/29/24 History cyclobenzaprine 10 mg tablet 10 mg PO TID PRN Pain 07/29/24 07/29/24 History lisinopril 5 mg tablet 5 mg PO BID 07/29/24 07/29/24 History magnesium oxide 400 mg PO DAILY 07/29/24 07/29/24 History melatonin 10 mg tablet 10 mg PO HS PRN Sleep 07/29/24 07/29/24 History pyridoxine (vitamin B6) 25 mg 25 mg PO HS 07/29/24 07/29/24 History tablet (Vitamin B-6) trazodone 100 mg tablet 100 mg PO HS 07/29/24 07/29/24 History ipratropium 20 mcg-albuterol 100 2 puff inhalation Q6HP PRN 07/30/24 07/30/24 History mcg/actuation mist for inhalation Breathing Problems (Combivent Respimat) venlafaxine 150 mg 150 mg PO DAILY 07/30/24 07/30/24 History capsule,extended release 24 hr ketorolac 10 mg tablet 10 mg PO Q6H PRN pain #14 tabs 07/31/24 Rx sulfamethoxazole 800 1 tab PO BID #18 tabs 07/31/24 Rx mg-trimethoprim 160 mg tablet (Bactrim DS) New Prescriptions to Start Prescriptions: Joshua Thomas sulfamethoxazole-trimethoprim [Bactrim DS] Joshua Berumen Allergies Allergy/AdvReac Type Severity Reaction Status Date / Time diphenhydramine (From AdvReac Palpitation Verified 07/29/24 18:03 Benadryl) s Discharge Plan Disposition Patient Disposition: Home, Self-Care Condition: Good Follow up Plan Follow up with: Wilber Bach MD [Staff Physician] - 08/07/24 9:15 am Lilia Cheema APRN [Primary Care Provider] - 08/07/24 3:30 pm Prescriptions/Medication Reconciliation: New ketorolac 10 mg tablet 10 mg PO Q6H PRN (Reason: pain) Qty: 14 0RF Rx Instructions: tolerated IV formulation during admission sulfamethoxazole-trimethoprim [Bactrim DS] 800-160 mg tablet 1 tab PO BID Qty: 18 0RF Continued hydroxyzine HCl 25 mg tablet 25 mg PO BID PRN (Reason: Anxiety) cyclobenzaprine 10 mg Tablet 10 mg PO TID PRN (Reason: Pain) pyridoxine (vitamin B6) [Vitamin B-6] 25 mg tablet 25 mg PO HS Patient Comments: Take 1 tablet every day by oral route. trazodone 100 mg Tablet 100 mg PO HS melatonin 10 mg Tablet 10 mg PO HS PRN (Reason: Sleep) magnesium oxide 400 mg magnesium Tablet 400 mg PO DAILY venlafaxine 150 mg capsule,extended release 24hr 150 mg PO DAILY Patient Comments: Take 1 capsule every day by oral route. Combivent Respimat 20-100 mcg/actuation mist 2 puff INHALATION Q6HP PRN (Reason: Breathing Problems) Patient Comments: Inhale 2 puffs every 6 hours by inhalation route as needed. Held lisinopril 5 mg Tablet 5 mg PO BID Hold Instructions: until completes bactrim antibiotic Problem Reconciliation Problems Reviewed?: Yes Patient Discharge Instructions ACTIVITY: Continue current activity DIET: continue same diet Patient Instructions: DI for Incision and Drainage of a Skin Abscess, DI for Surgical Site Infection, DI for Skin Abscess, Stop Light COPD, Stop Light Infection Print Language: Vietnamese Providers Primary Care Provider: Lilia Cheema Admit Provider: Nickolas Dobbins Attending Provider: Nickolas Dobbins
[2024-08-01 06:37] LABS: Hepatitis C Antibody Reactive (Non Reactive)
--- NOTE | 2024-08-01 09:55 | SW/DCPLANNER ---
Spoke with patient on the phone. Patient stated that she was able to order picker her medicine and that her pain medicine makes her sick. Patient stated that she is aware of her upcoming appointments. Patient stated that she has no concerns or questions at this time. Ellie Noland
== END 2024-07-31 15:25 | disposition home or self-care (01) ==
LOC: ER 16:29 → 2ND 17:17 → ER 17:38
PROVIDERS: Physician Assistant; Surgery; Admitting Provider Student in an Organized Health Care Education/Training Program; Emergency Provider Emergency Medicine; PCP Nurse Practitioner; Visit Provider Student in an Organized Health Care Education/Training Program
PROC: (CPT 10061; principal; 2024-07-30 10:00)
DX: L02.413 Cutaneous abscess of right upper limb (principal); L03.113 Cellulitis of right upper limb; J44.9 Chronic obstructive pulmonary disease, unspecified; I10 Essential (primary) hypertension; Z87.891 Personal history of nicotine dependence; Z79.899 Other long term (current) drug therapy; Z88.8 Allergy status to other drugs, medicaments and biological substances; F11.11 Opioid abuse, in remission; F41.8 Other specified anxiety disorders; F43.10 Post-traumatic stress disorder, unspecified
CPT/HCPCS: 10061; 36415; 73201; 80048; 80053; 80061; 80307; 83036; 83735; 85025; 87040; 87070; 87205; 87380; 99285; G0378; J0360; J0736; J1885; J2250; J3010; J7120; Q9967